=== PATIENT | female | born 1945 | race Caucasian/White ===

== ENCOUNTER 2024-02-08 03:18 | Day surgery (SDC) | payer MEDICARE | END 2024-02-09 23:08 | disposition home or self-care (01) | LOC: WOUND 03:18 | DX: E11.621 Type 2 diabetes mellitus with foot ulcer (principal); L97.414 Non-pressure chronic ulcer of right heel and midfoot with necrosis of bone; L97.522 Non-pressure chronic ulcer of other part of left foot with fat layer exposed | CPT/HCPCS: G0463 ==

== ENCOUNTER 2024-02-15 02:18 | Day surgery (SDC) | payer MEDICARE | END 2024-02-15 23:16 | disposition home or self-care (01) | LOC: WOUND 02:18 | DX: E11.621 Type 2 diabetes mellitus with foot ulcer (principal); L97.515 Non-pressure chronic ulcer of other part of right foot with muscle involvement without evidence of necrosis; L97.422 Non-pressure chronic ulcer of left heel and midfoot with fat layer exposed | CPT/HCPCS: G0463 ==

== ENCOUNTER 2024-02-22 02:52 | Day surgery (SDC) | payer MEDICARE | END 2024-02-22 22:41 | disposition home or self-care (01) | LOC: WOUND 02:52 | DX: E11.621 Type 2 diabetes mellitus with foot ulcer (principal); L97.415 Non-pressure chronic ulcer of right heel and midfoot with muscle involvement without evidence of necrosis; E11.40 Type 2 diabetes mellitus with diabetic neuropathy, unspecified; L97.515 Non-pressure chronic ulcer of other part of right foot with muscle involvement without evidence of necrosis; L97.422 Non-pressure chronic ulcer of left heel and midfoot with fat layer exposed; E11.69 Type 2 diabetes mellitus with other specified complication; M86.9 Osteomyelitis, unspecified; E11.51 Type 2 diabetes mellitus with diabetic peripheral angiopathy without gangrene | CPT/HCPCS: 73630 ==

== ENCOUNTER 2024-02-27 17:02 | Inpatient (IN) | payer MEDICARE ==
[~2024-02-27] VITALS: Ht 167.6 cm; Wt 99.8 kg
[2024-02-27] MEDS ORDERED: Ketorolac Tromethamine 15mg Vial IV ONE (17:40)
[2024-02-27] MEDS ORDERED: Cefepime HCl 1,000 MG in NS 100 ML IV ONE (17:40)
[2024-02-27] MEDS ORDERED: Diphth,Pertuss(Acell),Tet Vac 0.5 ML VIAL IM ONE (17:40)
[2024-02-27 18:11] LABS: Hematocrit 30.4 % (33.0-51.0); Hemoglobin 9.5 g/dL (11.5-16.0); Mean Corpuscular HGB 27.5 pg (26.0-34.0); Mean Corpuscular HGB Conc 31.3 g/dL (31.5-36.5); Mean Corpuscular Volume 88 fL (80-100); Mean Platelet Volume 9.2 fL (9.1-12.4); Platelet Count 336 K/mm3 (150-400); RDW Coefficient Variation 17.5 % (11.7-14.2); Red Blood Cell Count 3.45 M/mm3 (3.80-5.20); White Blood Cell Count 19.03 K/mm3 (4.00-11.30)
[2024-02-27 18:28] LABS: Albumin, Blood 1.5 g/dL (3.4-5.0); Albumin/Globulin Ratio 0.3 (0.8-1.8); Bilirubin, Total 0.8 mg/dL (0.1-1.0); Bun/Creatinine Ratio 28.9 (12.0-20.0); Calcium, Blood 9.3 mg/dL (8.5-10.1); Creatinine, Blood 2.35 mg/dL (0.40-1.00); Globulin, Blood 4.8 g/dL (2.2-4.0); Potassium, Blood 5.1 mmol/L (3.5-5.5); Total Protein, Blood 6.3 g/dL (6.4-8.2)
[2024-02-27 18:32] LABS: BAND PERCENT MAN 44 % (0-8); BASOPHILS PERCENT MAN 0 % (0-2); EOSINOPHILS ABSOLUTE MAN 0.19 K/mm3 (0.00-0.68); EOSINOPHILS PERCENT MAN 1 % (0-6); LYMPHOCYTES ABSOLUTE MAN 0.38 K/mm3 (0.84-5.20); LYMPHOCYTES PERCENT MAN 2 % (21-46); MONOCYTES ABSOLUTE MAN 1.33 K/mm3 (0.16-1.47); MONOCYTES PERCENT MAN 7 % (4-13); NEUTROPHILS ABSOLUTE MAN 17.12 K/mm3 (1.96-9.15); SEG NEUTROPHILS PERCENT MAN 46 % (41-73); TOTAL CELLS COUNTED 100
[2024-02-27] MEDS ORDERED: Ondansetron HCl 2 MG / ML 2ML Vial IV PRN (19:45)
[2024-02-27] MEDS ORDERED: FentaNYL Citrate 50 MCG/ML 2 ML Injection IV PRN (19:50)
[2024-02-27] MEDS ORDERED: Vancomycin HCL 1,250 MG in NS 250 ML IV ONE (19:55)
[2024-02-27] MEDS ORDERED: Albumin (Human) 25gm/100ml 100 ML IV ONE (20:05)
[2024-02-27 20:26] LABS: International Normalized Ratio 1.45; Prothrombin Time Results 15.1 Sec (9.7-11.5)
[2024-02-27] MEDS ORDERED: NS 500 ML IV SCH (21:15)
[2024-02-27] MEDS ORDERED: NS 1,000 ML IV SCH ×2 (21:15→22:00)
[2024-02-27] MEDS ORDERED: METO25ER PO (21:19)
[2024-02-27] MEDS ORDERED: ATOR10 PO (21:20)
[2024-02-27] MEDS ORDERED: Zestril30 MG PO (21:20)
[2024-02-27] MEDS ORDERED: AMLO10 PO (21:20)
[2024-02-27] MEDS ORDERED: METF500 PO (21:21)
[2024-02-27 21:45] VITALS: BP 120/58
[2024-02-27] MEDS ORDERED: MetroNIDAZOLE 500MG/NS 100 ml 100 ML IV ONE (22:15)
--- NOTE | 2024-02-27 22:32 | NUR ---
2135: Patient arrived from ED to room. Vital signs assessed, skin check completed with two RN's, wound care completed to right hip, coccyx, perianal, and bilateral heel sites. Photos taken of wounds while exposed, egg crate placed on bed for pressure relief, purewick system initiated for void collection.
[2024-02-28] VITALS (21 sets, daily range): BP systolic 77–120; BP diastolic 38–74
[2024-02-28] MEDS ORDERED: MetroNIDAZOLE 500MG/NS 100 ml 100 ML IV SCH
--- NOTE | 2024-02-28 05:20 | NUR ---
Patient alert and oriented, VSS, resting comfortably in bed on room air. Telemetry demonstrating sinus tachycardia 100-110's. NS @ 100 mL/hr infusing to left AC, one dose of IV Metronidozole and 1L NS bolus tolerated well.
[2024-02-28 05:46] LABS: Hematocrit 23.8 % (33.0-51.0); Hemoglobin 7.7 g/dL (11.5-16.0); Mean Corpuscular HGB 27.7 pg (26.0-34.0); Mean Corpuscular HGB Conc 32.4 g/dL (31.5-36.5); Mean Corpuscular Volume 86 fL (80-100); Mean Platelet Volume 9.7 fL (9.1-12.4); Platelet Count 246 K/mm3 (150-400); RDW Coefficient Variation 17.2 % (11.7-14.2); RDW Standard Deviation 54.5 fL (35.1-46.3); Red Blood Cell Count 2.78 M/mm3 (3.80-5.20); White Blood Cell Count 16.31 K/mm3 (4.00-11.30)
[2024-02-28 06:06] LABS: Albumin, Blood 1.5 g/dL (3.4-5.0); Albumin/Globulin Ratio 0.4 (0.8-1.8); Bilirubin, Total 0.6 mg/dL (0.1-1.0); Bun/Creatinine Ratio 29.8 (12.0-20.0); Calcium, Blood 8.2 mg/dL (8.5-10.1); Creatinine, Blood 1.91 mg/dL (0.40-1.00); Globulin, Blood 3.5 g/dL (2.2-4.0); Potassium, Blood 4.8 mmol/L (3.5-5.5)
[2024-02-28 06:17] LABS: BAND PERCENT MAN 22 % (0-8); BASOPHILS PERCENT MAN 0 % (0-2); EOSINOPHILS PERCENT MAN 0 % (0-6); LYMPHOCYTES % ATYPICAL MANUAL 1 % (0-0); LYMPHOCYTES ABSOLUTE MAN 0.97 K/mm3 (0.84-5.20); LYMPHOCYTES PERCENT MAN 5 % (21-46); MONOCYTES ABSOLUTE MAN 0.97 K/mm3 (0.16-1.47); MONOCYTES PERCENT MAN 6 % (4-13); MYELOCYTE ABSOLUTE MAN 0.16 K/mm3 (0.00-0.00); MYELOCYTE PERCENT MAN 1 % (0-0); NEUTROPHILS ABSOLUTE MAN 14.18 K/mm3 (1.96-9.15); SEG NEUTROPHILS PERCENT MAN 65 % (41-73); TOTAL CELLS COUNTED 100
[2024-02-28] MEDS ORDERED: Insulin Human Lispro 100 Units/ML 3ML Syringe SC SCH (07:30)
[2024-02-28] MEDS ORDERED: Metoprolol Succinate 25 MG TABCR PO SCH (09:00)
[2024-02-28] MEDS ORDERED: Lactobacil 2-S.Thermo-Bifido 1 1 Cap PO SCH (10:30)
[2024-02-28] MEDS ORDERED: Bupivacaine 0.5% Inj 10 ML Vial ONE (10:38)
[2024-02-28] MEDS ORDERED: NS 1,000 ML IV SCH (10:40)
[2024-02-28] MEDS ORDERED: FentaNYL Citrate 50 MCG/ML 2 ML Injection ONE ×2 (10:49→12:52)
[2024-02-28] MEDS ORDERED: propofoL 20 ML IV ONE ×2 (10:49→11:37)
[2024-02-28] MEDS ORDERED: Rocuronium Bromide 10 MG/ML 5ML Injection IV ONE (10:49)
[2024-02-28 10:57] LABS: Source, Urine Clean Catch
[2024-02-28 11:05] LABS: Appearance, Urine Hazy (Clear); Bilirubin, Urine Neg (Neg); Blood, Urine 4+ (Neg); Color, Urine Yellow (P-Yellow); Glucose Qualitative, Urine Neg (Neg); Ketones, Urine Neg (Neg); Leukocyte Esterase, Urine Neg (Neg); Nitrite, Urine Neg (Neg); Protein, Urine 1+ (Neg); Specific Gravity, Urine 1.015 (1.003-1.022); Urobilinogen, Urine NORM (Normal)
[2024-02-28 11:13] LABS: Bacteria Few /hpf; Red Blood Cells, Urine 25-50 /hpf (0-2); Squamous Epithelial Cells Few /hpf (Few); Triple Phosphate Crystals Few /hpf; White Blood Cells, Urine 0-2 /hpf (0-5)
--- NOTE | 2024-02-28 11:40 | NUR ---
History, Chart, Medications and Allergies reviewed before start of procedure. Pre-Op teaching done. Pt verbalizes understanding. Patient confirms NPO status and agrees with scheduled surgery.
[2024-02-28] MEDS ORDERED: Phenylephrine HCl 100 MCG/ML-NS 10MLSYR (1MG/10ML) ONE (11:57)
[2024-02-28] MEDS ORDERED: Sodium Hypochlorite 0.125% 473 ML BTL TOP ONE (12:20)
--- NOTE | 2024-02-28 12:30 | NUR ---
02/28/24 1230 Chelita Ramirez 3RD IV STARTED IN L HAND, 20G, FLUSHED WITH 10MLS OF SALINE. 2 PRIOR ATTEMPTS, (#1 IN R FOREARM, #2 IN L HAND)
[2024-02-28] MEDS ORDERED: FentaNYL Citrate 50 MCG/ML 5 ML Injection ONE (12:52)
[2024-02-28] MEDS ORDERED: Sugammadex Sodium 200 MG/2ML SDV (100 MG/ML) ONE (13:12)
--- NOTE | 2024-02-28 15:29 | NUR ---
CALLED DR. CARDENAS AT 1525 TO INQUIRE ABOUT NPO STATUS AND PAIN MEDICATION FOR PATIENT NOW THAT SHE IS POST OP. NO ANSWER LMOM.
[2024-02-28] MEDS ORDERED: OxyCODONE 5 mg/Acetamin 325 mg TABLET PO PRN (16:15)
--- NOTE | 2024-02-28 16:31 | NUR ---
RECORDS SHOWED THAT PATIENT HAD A POLST, BUT WAS NOT IN THE SYSTEM. CALLED [facility] AND WAS FAXED OVER. POLST STATES DNR AND FULL TREATMENT. PT HAS JUST RETURNED FROM A PROCEDURE AND IS TOO LETHARGIC TO VERIFY CODE STATUS. LEFT COPY OF POLST IN THE CHART AND UPDATED BEDSIDE RN AND PROVIDER. PC WILL REMAIN AVALILABLE.
--- NOTE | 2024-02-28 17:09 | NUR ---
CALLED DR. DIMAS REGARDING PATIENT'S BLOOD PRESSURE; TELEPHONE ORDER FOR 500ML LR BOLUS AND TO CHECK H&H STAT AND AGAIN AT 2100. ORDERS PLACED. PATIENT IS ALERT.
[2024-02-28] MEDS ORDERED: Lactated Ringer's 500 ML IV ONE (17:10)
[2024-02-28 17:44] LABS: Hematocrit 25.7 % (33.0-51.0); Hemoglobin 7.8 g/dL (11.5-16.0)
[2024-02-28] MEDS ORDERED: Cefepime HCl 1,000 MG in NS 100 ML IV SCH (18:00)
--- NOTE | 2024-02-28 19:08 | NUR ---
SHIFT SUMMARY: PT UNDERWENT SURGERY TODAY TO CLEAN OUT ALL OF HER INFECTIOUS WOUNDS. SEE DR. HASSAN'S NOTE FOR FURTHER DETAIL. PATIENT C/O POST OP PAIN; MEDS NEEDED. DRESSING SATURATED WITH SEROUS FLUID; CHANGED. WOUNDS SHOWN TO NOC RN AND NOC ATTENDING UROLOGIST. PATIENT IN BED, CALL LIGHT WITHIN REACH, NO SIGNS OR SYMPTOMS OF DISTRESS, PLAN OF CARE ONGOING.
[2024-02-28 19:36] LABS: Vancomycin, Random 5.5 ug/mL
[2024-02-28] MEDS ORDERED: Vancomycin HCL 1,250 MG in NS 250 ML IV ONE (20:05)
[2024-02-28] MEDS ORDERED: Vancomycin HCL 1,500 MG in NS 250 ML IV ONE (20:05)
[2024-02-28] MEDS ORDERED: Lactated Ringer's 1,000 ML IV SCH (20:35)
[2024-02-28] MEDS ORDERED: Lactated Ringer's 1,000 ML IV ONE (20:35)
[2024-02-28] MEDS ORDERED: Midodrine 5 MG Tab PO ONE (20:40)
[2024-02-28 20:52] LABS: Hematocrit 23.1 % (33.0-51.0)
[2024-02-28] MEDS ORDERED: Acetaminophen 325 MG TABLET PO PRN (21:50)
[2024-02-28 22:04] LABS: IMMATURE RETIC FRACTION 31.2 % (2.3-16.0); RETIC HGB EQUIVALENT 26.6 pg (28.20-36.60); RETICULOCYTE ABSOLUTE 0.0482 M/mm3 (0.0200-0.1100); RETICULOCYTE COUNT PERCENT 1.86 % (0.50-2.50)
[2024-02-28] MEDS ORDERED: NS 500 ML IV SCH (22:20)
[2024-02-28 22:22] LABS: Percent Saturation 12.3 % (15.0-50.0)
[2024-02-29] VITALS (10 sets, daily range): BP systolic 89–112; BP diastolic 38–60
--- NOTE | 2024-02-29 06:28 | NUR ---
END OF SHIFT SUMMARY PT A&OX4, FORGETFUL AND [place]. NIECE IN LAST NIGHT TO VISIT WITH PT AND BROUGHT HEARING AID. LOW BP, PT ASYMPTOMATIC. MD NOTIFIED AND ORDERS FOR BOLUS, MIDODRINE AND CONT IVF ORDERED. LATER HEMOGLOBIN DOWN TO 7.0, ORDERS RECD FOR 1U OF PRBC. TRANSFUSED WITHOUT INCIDENT. BP IMPROVED, SEE CHARTING. ABD PADS CHANGED THIS AM DUE TO SS DRAINAGE, PACKING AND HUMBERTO REMAINS IN PLACE. NO OTHER EVENTS OVERNIGHT.
[2024-02-29 07:16] LABS: BASOPHILS ABSOLUTE AUTO 0.03 K/mm3 (0.00-0.23); BASOPHILS PERCENT AUTO 0 % (0-2); EOSINOPHILS PERCENT AUTO 1 % (0-6); Hematocrit 24.4 % (33.0-51.0); Hemoglobin 7.8 g/dL (11.5-16.0); IMMATURE GRAN ABSOLUTE AUTO 0.41 K/mm3 (0.00-0.10); IMMATURE GRAN PERCENT AUTO 3 % (0-1); LYMPHOCYTES ABSOLUTE AUTO 1.21 K/mm3 (0.84-5.20); LYMPHOCYTES PERCENT AUTO 8 % (21-46); MONOCYTES ABSOLUTE AUTO 0.99 K/mm3 (0.16-1.47); MONOCYTES PERCENT AUTO 7 % (4-13); Mean Corpuscular HGB 28.6 pg (26.0-34.0); Mean Corpuscular Volume 89 fL (80-100); Mean Platelet Volume 9.2 fL (9.1-12.4); NEUTROPHILS ABSOLUTE AUTO 11.97 K/mm3 (1.96-9.15); NEUTROPHILS PERCENT AUTO 81 % (41-73); Platelet Count 249 K/mm3 (150-400); RDW Coefficient Variation 16.7 % (11.7-14.2); RDW Standard Deviation 54.9 fL (35.1-46.3); Red Blood Cell Count 2.73 M/mm3 (3.80-5.20); White Blood Cell Count 14.71 K/mm3 (4.00-11.30)
[2024-02-29 07:33] LABS: Albumin, Blood 1.2 g/dL (3.4-5.0); Albumin/Globulin Ratio 0.4 (0.8-1.8); Bilirubin, Total 0.6 mg/dL (0.1-1.0); Bun/Creatinine Ratio 28.8 (12.0-20.0); Calcium, Blood 7.6 mg/dL (8.5-10.1); Creatinine, Blood 1.46 mg/dL (0.40-1.00); Globulin, Blood 2.9 g/dL (2.2-4.0); Potassium, Blood 4.5 mmol/L (3.5-5.5); Total Protein, Blood 4.1 g/dL (6.4-8.2)
[2024-02-29] MEDS ORDERED: Cefepime HCl 1,000 MG in NS 100 ML IV SCH (09:00)
[2024-02-29 15:32] LABS: Hematocrit 26.4 % (33.0-51.0); Hemoglobin 8.4 g/dL (11.5-16.0)
--- NOTE | 2024-02-29 17:50 | NUR ---
SHIFT SUMMARY: PT IS A&OX4/BEDBOUND; MAKES NEEDS KNOWN. SHE IS 1 DAY POST OP. SHE IS DOING WELL; C/O MINIMAL PAIN; STATES FEELS SORE. DRESSINGS BEING CHANGED WHEN BECOME SATURATED X2 TIMES TODAY. SHE IS EATING, DRINKING, WELLER IN DRAINING, AND HAD A BOWEL MOVEMENT. VITALS STABLE; HEMAGLOBIN IS 8.4. SHE CONTINUES TO GET FLUIDS AND IV ANTIBIOTICS. FAMILY MET WITH DR. CARDENAS AND NURSE RETAIL LOSS PREVENTION OFFICER REMI TODAY ABOUT PATIENT'S CARE/CONDITION. SHE IS IN BED, CALL LIGHT WITHIN REACH, FAMILY AT BEDSIDE, NO SIGNS OR SYMPTOMS OF DISTRESS, PLAN OF CARE ONGOING. (CHARTING COMPLETED DURING DOWNTIME TODAY WAS ALSO COMPLETED ON DOWNTIME PAPER CHARTS)
--- NOTE | 2024-02-29 18:15 | NUR ---
DR. HASSAN CALLED ME FOR AN UPDATE ON THE PATIENT; UPDATE GIVEN. HE PLANS ON COMING BY TOMORROW AND CHANGING THE PATIENT'S WOUND DRESSINGS. HE IS REQUESTING THAT ONCOMING RN BE NOTIFIED AND THAT THE MESSAGE BE PAST ALONG TO TOMORROW'S DAY SHIFT NURSE WELL; BEDSIDE RNS WILL NEED TO START DOING DRESSSING CHANGES.
[2024-02-29] MEDS ORDERED: Vancomycin HCL 1,000 MG in NS 250 ML IV ONE (19:50)
[2024-02-29] MEDS ORDERED: NS 250 ML IV ONE (20:58)
[2024-03-01 03:44] VITALS: BP 115/52
[2024-03-01] MEDS ORDERED: NS 250 ML IV PRN (04:05)
[2024-03-01 05:48] LABS: BASOPHILS ABSOLUTE AUTO 0.03 K/mm3 (0.00-0.23); BASOPHILS PERCENT AUTO 0 % (0-2); EOSINOPHILS ABSOLUTE AUTO 0.15 K/mm3 (0.00-0.68); EOSINOPHILS PERCENT AUTO 1 % (0-6); Hematocrit 25.7 % (33.0-51.0); Hemoglobin 8.2 g/dL (11.5-16.0); IMMATURE GRAN ABSOLUTE AUTO 0.43 K/mm3 (0.00-0.10); IMMATURE GRAN PERCENT AUTO 3 % (0-1); LYMPHOCYTES ABSOLUTE AUTO 1.01 K/mm3 (0.84-5.20); LYMPHOCYTES PERCENT AUTO 7 % (21-46); MONOCYTES ABSOLUTE AUTO 0.86 K/mm3 (0.16-1.47); MONOCYTES PERCENT AUTO 6 % (4-13); Mean Corpuscular HGB 28.6 pg (26.0-34.0); Mean Corpuscular HGB Conc 31.9 g/dL (31.5-36.5); Mean Corpuscular Volume 90 fL (80-100); Mean Platelet Volume 8.9 fL (9.1-12.4); NEUTROPHILS ABSOLUTE AUTO 12.52 K/mm3 (1.96-9.15); NEUTROPHILS PERCENT AUTO 84 % (41-73); Platelet Count 241 K/mm3 (150-400); RDW Coefficient Variation 17.2 % (11.7-14.2); RDW Standard Deviation 55.8 fL (35.1-46.3); Red Blood Cell Count 2.87 M/mm3 (3.80-5.20)
[2024-03-01 06:14] LABS: Albumin, Blood 1.2 g/dL (3.4-5.0); Albumin/Globulin Ratio 0.4 (0.8-1.8); Bilirubin, Total 0.4 mg/dL (0.1-1.0); Bun/Creatinine Ratio 26.8 (12.0-20.0); Calcium, Blood 7.6 mg/dL (8.5-10.1); Creatinine, Blood 1.12 mg/dL (0.40-1.00); Potassium, Blood 4.3 mmol/L (3.5-5.5); Total Protein, Blood 4.2 g/dL (6.4-8.2)
--- NOTE | 2024-03-01 06:45 | NUR ---
END OF SHIFT SUMMARY PT A&OX4, FORGETFUL AT TIMES. [place], R HEARING AID IN ROOM. PT DENIES PAIN. DRESSING TO SACRUM CHANGED X1 FOR SATURATION, PACKING AND HUMBERTO DRAINS REMAIN INTACT. MEPILEX TO BUTTOCK/COCCYX CHANGED THIS AM. POSITIVE BLOOD CULTURES CALLED TO , CONTINUES ON IVF AND ABX. NO ACUTE EVENTS OVERNIGHT.
[2024-03-01 07:14] VITALS: BP 110/59
--- NOTE | 2024-03-01 09:00 | NUR ---
Pt laying in bed awake a/ox4, curyung, pleasant and cooperative with care, follows commands, denies pain, lungs are clear dim in bases resp even and unlabored, no cough noted, on r/a, hrr, tele in place running sr to st with bbb and pac's, 2+ edema noted to b/l le ppp faint, cap refill <3 sec vs stable, afebrile, iv sites are clear and patent, btx4, abd flat soft nontender, voids via norwood cath as she has large sacral wound, skin has dressing to sacral area, Dr. Ramirez will change today, maew, legs are weak, marilyn, call light in reach.
[2024-03-01] MEDS ORDERED: OxyCODONE HCL 5 MG TAB PO PRN (11:40)
--- NOTE | 2024-03-01 15:00 | NUR ---
1230 dr victoria in to see patient and performed dressing change to coccyx area. wound bed with benedict/yellow drainage. wound space and tunnels packed with kerlix which was moistened with daikens solution. 4 rolls of kerlix tied end to end together. covered with abd's and tape to hold in place. mepilex coccyx dressing applied
[2024-03-01 15:18] VITALS: BP 102/52
--- NOTE | 2024-03-01 18:14 | NUR ---
Dr. Ramirez in to change dressing on pt sacral area, he packed it and gave orders on wound care every other day, pt has been turned throughout the day, and started her on oxycodone for pain. no further changes this shift, call light in reach.
[2024-03-01 20:02] LABS: Vancomycin, Random 15.5 ug/mL
[2024-03-01 20:08] VITALS: BP 107/56
[2024-03-01] MEDS ORDERED: Vancomycin HCL 1,250 MG in NS 250 ML IV SCH (21:00)
--- NOTE | 2024-03-02 04:53 | NUR ---
NOC SHIFT SUMMARY PT APPEARED TO SLEEP WELL WITH NO COMPLAINTS. REPOSITIONED EVERY 2 HOURS.
[2024-03-02 05:23] VITALS: BP 104/44
[2024-03-02 06:09] LABS: BASOPHILS ABSOLUTE AUTO 0.03 K/mm3 (0.00-0.23); BASOPHILS PERCENT AUTO 0 % (0-2); EOSINOPHILS PERCENT AUTO 1 % (0-6); Hematocrit 25.1 % (33.0-51.0); Hemoglobin 7.9 g/dL (11.5-16.0); IMMATURE GRAN ABSOLUTE AUTO 0.42 K/mm3 (0.00-0.10); IMMATURE GRAN PERCENT AUTO 3 % (0-1); LYMPHOCYTES ABSOLUTE AUTO 1.06 K/mm3 (0.84-5.20); LYMPHOCYTES PERCENT AUTO 8 % (21-46); MONOCYTES ABSOLUTE AUTO 0.92 K/mm3 (0.16-1.47); MONOCYTES PERCENT AUTO 7 % (4-13); Mean Corpuscular HGB 28.4 pg (26.0-34.0); Mean Corpuscular HGB Conc 31.5 g/dL (31.5-36.5); Mean Corpuscular Volume 90 fL (80-100); Mean Platelet Volume 9.4 fL (9.1-12.4); NEUTROPHILS ABSOLUTE AUTO 11.34 K/mm3 (1.96-9.15); NEUTROPHILS PERCENT AUTO 82 % (41-73); Platelet Count 250 K/mm3 (150-400); RDW Coefficient Variation 17.3 % (11.7-14.2); RDW Standard Deviation 57.4 fL (35.1-46.3); Red Blood Cell Count 2.78 M/mm3 (3.80-5.20); White Blood Cell Count 13.87 K/mm3 (4.00-11.30)
[2024-03-02 06:32] LABS: Albumin/Globulin Ratio 0.4 (0.8-1.8); Bilirubin, Total 0.4 mg/dL (0.1-1.0); Bun/Creatinine Ratio 21.8 (12.0-20.0); Calcium, Blood 7.3 mg/dL (8.5-10.1); Creatinine, Blood 1.01 mg/dL (0.40-1.00); Globulin, Blood 2.8 g/dL (2.2-4.0); Potassium, Blood 4.2 mmol/L (3.5-5.5); Total Protein, Blood 3.8 g/dL (6.4-8.2)
[2024-03-02 07:29] VITALS: BP 90/45
--- NOTE | 2024-03-02 09:04 | NUR ---
NOTE: SPOKE WITH PHARMACIST, NABOR, AND SHE CONFIRMED BOTH CEFEPIME AND METRONDANIZOLE ARE OKAY TO RUN WITH LR.
[2024-03-02 15:48] VITALS: BP 113/67
--- NOTE | 2024-03-02 16:47 | NUR ---
SHIFT SUMMARY PT AOX4, 2 ASSIST TO THE CHAIR IF HEEL PAIN WILL ALLOW. BIG [place]. DRESSING TO BACK REINFORCED THIS SHIFT. HEEL DRESSINGS ALSO CHANGED THIS SHIFT. PT HAS NOT C/O CP,P,N,V,D. REPOSITIONED THROUGHOUT THE SHIFT. SHE WILL CALL AND MAKE HER NEEDS KNOWN. CALL LIGHT WITHIN REACH, BED LOCKED AND IN THE LOWEST POSITION. WILL REPORT TO ONCOMING NURSE.
[2024-03-02 19:20] VITALS: BP 94/54
[2024-03-03 02:37] VITALS: BP 96/55
--- NOTE | 2024-03-03 04:16 | NUR ---
SHIFT SUMMARY. PATIENT IS A&OX4. PATIENT IS PLEASANT AND COOPERATIVE WITH CARE. PATIENT SLEPT OFF AND ON T/O NIGHT WITH RESPIRATIONS EQUAL AND UNLABORED. PATIENTS IV BLEEDING. NEW IV PLACED-CONCER FOR INFILTRATION. PATIENT NOT WANTING ANOTHER IV PLACED AT THIS TIME-PATIENT REPORTS SHE WILL HAVE THEM TAKE A LOOK DURING THE DAY. IV SUSPENDED AT THIS TIME. PATIENT IS READING AND WATCHING TV INTERMITTANTLY BETWEEN RESTING. BED IS LOCKED IN THE LOWEST POSITON [facility] CALL LIGHT IN REACH. CARE IS ONGOING.
[2024-03-03 05:46] LABS: BASOPHILS ABSOLUTE AUTO 0.02 K/mm3 (0.00-0.23); BASOPHILS PERCENT AUTO 0 % (0-2); EOSINOPHILS PERCENT AUTO 1 % (0-6); Hematocrit 26.5 % (33.0-51.0); Hemoglobin 8.3 g/dL (11.5-16.0); IMMATURE GRAN ABSOLUTE AUTO 0.54 K/mm3 (0.00-0.10); IMMATURE GRAN PERCENT AUTO 4 % (0-1); LYMPHOCYTES ABSOLUTE AUTO 1.13 K/mm3 (0.84-5.20); LYMPHOCYTES PERCENT AUTO 9 % (21-46); MONOCYTES ABSOLUTE AUTO 1.01 K/mm3 (0.16-1.47); MONOCYTES PERCENT AUTO 8 % (4-13); Mean Corpuscular HGB 28.2 pg (26.0-34.0); Mean Corpuscular HGB Conc 31.3 g/dL (31.5-36.5); Mean Corpuscular Volume 90 fL (80-100); Mean Platelet Volume 9.3 fL (9.1-12.4); NEUTROPHILS ABSOLUTE AUTO 9.95 K/mm3 (1.96-9.15); NEUTROPHILS PERCENT AUTO 78 % (41-73); Platelet Count 275 K/mm3 (150-400); RDW Coefficient Variation 17.4 % (11.7-14.2); RDW Standard Deviation 56.6 fL (35.1-46.3); Red Blood Cell Count 2.94 M/mm3 (3.80-5.20); White Blood Cell Count 12.75 K/mm3 (4.00-11.30)
[2024-03-03 06:07] LABS: Bun/Creatinine Ratio 15.9 (12.0-20.0); Calcium, Blood 7.7 mg/dL (8.5-10.1); Creatinine, Blood 0.94 mg/dL (0.40-1.00); Potassium, Blood 4.2 mmol/L (3.5-5.5)
[2024-03-03 07:18] VITALS: BP 101/55
[2024-03-03] MEDS ORDERED: CefTRIAXone Sodium 2,000 MG in NS 100 ML IV SCH (13:00)
[2024-03-03 15:24] VITALS: BP 91/77
[2024-03-03] MEDS ORDERED: Enoxaparin 40 MG/0.4 ML SYR SC SCH (16:00)
--- NOTE | 2024-03-03 18:28 | NUR ---
SHIFT SUMMARY PT HAD WOUND CARE COMPLETED TODAY BY RNS. NEW PHOTOS TAKEN AND IN CHART. FAMILY MET WITH DC CONDITIONER TENDER AND PLAN TO SEND REFERAL TO [facility] IN [place] FOR THERAPY. PT WORKED WITH OT TODAY. REQUEST FOR PODIATRY CONSULT TO ASSESS WOUNDS ON FEET AND WEIGHT BEARING STATUS. DR. GOMEZ IN THIS AFTERNOON TO SEE THE PATIENT. RECOMMENDING A POST OP SHOE FOR THE L FOOT AND NON-WEIGHT BEARING FOR THE R FOOT. ONLY FOR TRANSFERING NO AMBULATION AT THIS TIME. ORDERS PLACED FOR THERAPY TO FOLLOW. POST OP SHOE REQUESTED FOR L FOOT. NO OTHER ACUTE CHANGES IN ASSESSMENT AT THIS TIME. VS REVIEWED. CALL LIGHT IN REACH. DENIES OTHER NEEDS AT THIS TIME.
[2024-03-03 19:50] VITALS: BP 92/45
[2024-03-04 02:16] VITALS: BP 104/58
--- NOTE | 2024-03-04 04:52 | NUR ---
SHIFT SUMMARY ADMITTED FOR DECUBITUS ULCERS. DNR CODE. PLAN IS FOR PLACEMENT VS [facility]RA TRANSFER. WELLER IN PLACE. ABD PADS ON DRESSINGS CHANGED THIS SHIFT. SHE IS A&OX4, QUITE PLEASANT AND COOPERATIVE. I&D PERFORMED ON ULCERS 02/28/24. LR INFUSING ORDERED. SHE IS NON WEIGHT BEARING ON RIGHT HEEL, AND WITH HER LEFT FOOT SHE WILL UTILIZE A POST OP SHOE (ALSO DUE TO ULCERS). SHE IS ON RA. CARDIAC DIET.
[2024-03-04 05:48] LABS: BASOPHILS ABSOLUTE AUTO 0.03 K/mm3 (0.00-0.23); BASOPHILS PERCENT AUTO 0 % (0-2); EOSINOPHILS ABSOLUTE AUTO 0.14 K/mm3 (0.00-0.68); EOSINOPHILS PERCENT AUTO 1 % (0-6); Hematocrit 25.9 % (33.0-51.0); Hemoglobin 8.2 g/dL (11.5-16.0); IMMATURE GRAN ABSOLUTE AUTO 0.45 K/mm3 (0.00-0.10); IMMATURE GRAN PERCENT AUTO 4 % (0-1); LYMPHOCYTES ABSOLUTE AUTO 0.98 K/mm3 (0.84-5.20); LYMPHOCYTES PERCENT AUTO 8 % (21-46); MONOCYTES ABSOLUTE AUTO 0.82 K/mm3 (0.16-1.47); MONOCYTES PERCENT AUTO 7 % (4-13); Mean Corpuscular HGB 28.8 pg (26.0-34.0); Mean Corpuscular HGB Conc 31.7 g/dL (31.5-36.5); Mean Corpuscular Volume 91 fL (80-100); Mean Platelet Volume 9.4 fL (9.1-12.4); NEUTROPHILS ABSOLUTE AUTO 9.83 K/mm3 (1.96-9.15); NEUTROPHILS PERCENT AUTO 80 % (41-73); Platelet Count 285 K/mm3 (150-400); RDW Standard Deviation 58.3 fL (35.1-46.3); Red Blood Cell Count 2.85 M/mm3 (3.80-5.20); White Blood Cell Count 12.25 K/mm3 (4.00-11.30)
[2024-03-04 06:45] LABS: Albumin/Globulin Ratio 0.3 (0.8-1.8); Bilirubin, Total 0.3 mg/dL (0.1-1.0); Bun/Creatinine Ratio 14.2 (12.0-20.0); Calcium, Blood 7.5 mg/dL (8.5-10.1); Creatinine, Blood 0.92 mg/dL (0.40-1.00); Globulin, Blood 3.3 g/dL (2.2-4.0); Potassium, Blood 3.9 mmol/L (3.5-5.5); Total Protein, Blood 4.3 g/dL (6.4-8.2)
[2024-03-04 07:19] VITALS: BP 96/56
[2024-03-04 15:02] VITALS: BP 104/60
--- NOTE | 2024-03-04 18:32 | NUR ---
SHIFT SUMMARY PT ABD PADS CHANGED ON THE OUTSIDE OF HER WOUND TODAY DUE TO DRAINAGE. DRESSINGS TO BILATERAL FEET CHANGED WELL TODAY. PT HAD PELVIC/UTERINE ULTRASOUND TODAY. ATTEMPT TO NOTIFY MD OF RESULTS, BUT UNABLE TO GET AHOLD OF THEM AND NO ABILITY TO LEAVE MESSAGE. PT WORKING WITH PHYSICAL THERAPY TODAY & OCCUPATIONAL THERAPY. OTHERWISE, NO CHANGES IN ASSESSMENT AT THIS TIME. VS REVIEWED. CALL LIGHT IN REACH. DENIES OTHER NEEDS AT THIS TIME.
[2024-03-04 19:09] VITALS: BP 92/43
[2024-03-05 02:39] VITALS: BP 84/44
--- NOTE | 2024-03-05 03:42 | NUR ---
PATIENTS ABD PADS CHANGED AND AREA CLEANED AROUND ROUND D/T SATURATION.
[2024-03-05 03:47] VITALS: BP 99/59
--- NOTE | 2024-03-05 04:42 | NUR ---
SHIFT SUMMARY. PATIENT IS A&OX2. CALLS APPROPRIATELY AND IS ABLE TO MAKE HER NEEDS KNWON. PATIENT IS PLEASANT AND COOPERATIVE WITH CARE. PATIENT ADMITTED WITH DECUBITIS WOUNDS AND HEEL ULCERS. WOUND DRESSING TO WOUNDS ON BACK TO BE CHANGED ON 03/05/24. HEEL WOUND DRESSINGS CHANGED ON 03/04/24 DURING DAYSHIFT. PATIENTS HEEL DRESSINGS C/D/I THIS SHIFT. PATIENT REPORTS THAT HER FAMILY IS GOING TO BRING HER IN DINNER ON 03/05/24 AND SHE DOES NOT NEED A TRAY. PATIENT WORKED WITH PHYSICAL THERAPY AND OCCUPATIONAL THERAPY TODAY. PATIENT SLEEPY THIS EVENING. PATIENT IS ABLE TO ASSIST IN ROLLING IN BED. PATIENTS BLOOD PRESSURE WAS SOFT THIS MORNING AT 99/59-PATIENT REPORTS SHE FEELS JUST FINE AND NOTHING SEEMS DIFFERENT WITH HER BLOOD PRESSURE. BED IS LOCKED IN THE LOWEST POSITION WITH CALL LIGHT IN REACH. CARE IS ONGOING.
--- NOTE | 2024-03-05 05:05 | NUR ---
HOSPITALIST CONTACTED. HOSPITALIST CONTACTED AND NOTIFIED OF PATIENTS SOFT BLOOD PRESSURE OF 99/54. NO CHANGES AT THIS TIME. TO CONTINUE TO MONITOR PATIENT.
[2024-03-05 05:46] LABS: BASOPHILS ABSOLUTE AUTO 0.03 K/mm3 (0.00-0.23); BASOPHILS PERCENT AUTO 0 % (0-2); EOSINOPHILS ABSOLUTE AUTO 0.12 K/mm3 (0.00-0.68); EOSINOPHILS PERCENT AUTO 1 % (0-6); Hematocrit 24.7 % (33.0-51.0); Hemoglobin 7.7 g/dL (11.5-16.0); IMMATURE GRAN ABSOLUTE AUTO 0.34 K/mm3 (0.00-0.10); IMMATURE GRAN PERCENT AUTO 3 % (0-1); LYMPHOCYTES ABSOLUTE AUTO 1.09 K/mm3 (0.84-5.20); LYMPHOCYTES PERCENT AUTO 10 % (21-46); MONOCYTES ABSOLUTE AUTO 0.82 K/mm3 (0.16-1.47); MONOCYTES PERCENT AUTO 7 % (4-13); Mean Corpuscular HGB 28.5 pg (26.0-34.0); Mean Corpuscular HGB Conc 31.2 g/dL (31.5-36.5); Mean Corpuscular Volume 92 fL (80-100); Mean Platelet Volume 9.2 fL (9.1-12.4); NEUTROPHILS ABSOLUTE AUTO 8.79 K/mm3 (1.96-9.15); NEUTROPHILS PERCENT AUTO 79 % (41-73); Platelet Count 276 K/mm3 (150-400); RDW Coefficient Variation 18.1 % (11.7-14.2); RDW Standard Deviation 58.3 fL (35.1-46.3); White Blood Cell Count 11.19 K/mm3 (4.00-11.30)
[2024-03-05 07:00] LABS: Albumin/Globulin Ratio 0.3 (0.8-1.8); Bilirubin, Total 0.3 mg/dL (0.1-1.0); Bun/Creatinine Ratio 12.5 (12.0-20.0); Calcium, Blood 7.7 mg/dL (8.5-10.1); Creatinine, Blood 0.88 mg/dL (0.40-1.00); Globulin, Blood 3.1 g/dL (2.2-4.0); Phosphorus, Blood 1.9 mg/dL (2.5-4.9); Potassium, Blood 3.8 mmol/L (3.5-5.5); Total Protein, Blood 4.1 g/dL (6.4-8.2)
[2024-03-05 07:48] VITALS: BP 105/64
[2024-03-05 15:28] VITALS: BP 97/56
--- NOTE | 2024-03-05 17:21 | NUR ---
NO ACUTE CHANGES, WAINWRIGHT, FRIENDS VISITED TODAY, VIBRA DENIED PATIENTS INSURANCE, DRESSING TO LOWER BACK DONE WITH DANIK'S SOLUTION ON KERLEX PACKED IN WOUNDS, TWO DRAINS IN PLACE, MEPILEX TO COCCYX, NEW HEEL DRESSINGS, PATIENT TOLERATED WITH EASE, PATIENT IS UNABLE TO FEEL THE WOUND AND PACKING. WELLER TO GRAVITY, WORKED WITH PT/OT, VERY WAINWRIGHT, OTHER OPTIONS FOR SNF EXPLORED BY CASE MANAGEMENT. LEFT WRIST IV INFILTRATED, NEW IV TO LEFT AC, CALL LIGHT WITH IN REACH, CLEARLY MAKES NEEDS KNOWN, WILL RELAY TO PM SAI
[2024-03-05] MEDS ORDERED: Arginine/Glutamine/Calcium Hmb 1 Packet PO SCH (21:00)
[2024-03-05 21:03] VITALS: BP 98/57
--- NOTE | 2024-03-05 21:19 | NUR ---
PATIENTS WOUND TO LOWER BACK DRAINING HEAVILY EARLY THIS SHIFT-ABD PADS AND DISPOSABLE FACUNDO PADS CHANGED FOR SATURATION. PATIENT TOLERATED WELL. SKIN AROUND AREA WHERE TAPE IS APPLIED TO IS PINK/IRRITATED. MINIMAL TAPE USED TO KEEP BANDAGE IN PLACE.
[2024-03-06 02:59] VITALS: BP 108/58
--- NOTE | 2024-03-06 04:15 | NUR ---
SHIFT SUMMARY. PATIENT IS A&OX4. PATIENT HAS HAD NO CHANGES THIS SHIFT. PATIENT IS PLEASANT AND COOPERATIVE WITH CARE. PATIENT C/O PAIN X1 TONIGHT-MEDICATED WITH OXYCODONE PER ORDERS-PATIENT REPORTS RELIEF FROM PAIN. PATIENT HAD WOUND DRESSINGS CHANGED DURING THE DAYSHIFT ON 03/05/24. PATIENTS WOUNDS ARE DRAINING-SEE PREVIOUS NOTE. WELLER IS PATENT AND DRAINING TO GRAVITY-CATHETER CARE COMPLETED. BED IS LOCKED IN THE LOWEST POSITION WITH CALL LIGHT IN REACH. NEEDS ASSESSED AND ADDRESSED T/O NIGHT. CARE IS ONGOING.
[2024-03-06 05:18] LABS: BASOPHILS ABSOLUTE AUTO 0.05 K/mm3 (0.00-0.23); BASOPHILS PERCENT AUTO 1 % (0-2); EOSINOPHILS ABSOLUTE AUTO 0.14 K/mm3 (0.00-0.68); EOSINOPHILS PERCENT AUTO 1 % (0-6); Hematocrit 24.9 % (33.0-51.0); Hemoglobin 8.2 g/dL (11.5-16.0); IMMATURE GRAN ABSOLUTE AUTO 0.39 K/mm3 (0.00-0.10); IMMATURE GRAN PERCENT AUTO 4 % (0-1); LYMPHOCYTES ABSOLUTE AUTO 1.26 K/mm3 (0.84-5.20); LYMPHOCYTES PERCENT AUTO 11 % (21-46); MONOCYTES ABSOLUTE AUTO 0.78 K/mm3 (0.16-1.47); MONOCYTES PERCENT AUTO 7 % (4-13); Mean Corpuscular HGB 29.3 pg (26.0-34.0); Mean Corpuscular HGB Conc 32.9 g/dL (31.5-36.5); Mean Corpuscular Volume 89 fL (80-100); Mean Platelet Volume 9.3 fL (9.1-12.4); NEUTROPHILS ABSOLUTE AUTO 8.48 K/mm3 (1.96-9.15); NEUTROPHILS PERCENT AUTO 76 % (41-73); Platelet Count 238 K/mm3 (150-400); RDW Coefficient Variation 18.6 % (11.7-14.2); RDW Standard Deviation 57.1 fL (35.1-46.3)
[2024-03-06 05:44] LABS: Albumin/Globulin Ratio 0.3 (0.8-1.8); Bilirubin, Total 0.2 mg/dL (0.1-1.0); Bun/Creatinine Ratio 15.1 (12.0-20.0); Calcium, Blood 7.4 mg/dL (8.5-10.1); Creatinine, Blood 0.93 mg/dL (0.40-1.00); Globulin, Blood 3.1 g/dL (2.2-4.0); Potassium, Blood 3.9 mmol/L (3.5-5.5); Total Protein, Blood 4.1 g/dL (6.4-8.2)
[2024-03-06 07:45] VITALS: BP 95/52
[2024-03-06] MEDS ORDERED: Sodium Hypochlorite 0.125% 473 ML BTL XX SCH (09:00)
[2024-03-06 15:19] VITALS: BP 96/52
--- NOTE | 2024-03-06 16:09 | NUR ---
Spiritual Care Consult - ordered by Dr. Obed HAZEL Pt. is awake in bed and welcomed my visit. Pt. is pleasant. Facilitated a lengthy life review and listened with interest, empathty and a calming presence. Pt. displayed evidence of a clear mind, but also displayed evidence of some lonliness. Rapport is ultimately established as we considered matters of soo and belief. Pt. verbalized graitude for the care she has received as well as the spiritual care visit.
--- NOTE | 2024-03-06 18:02 | NUR ---
NO ACUTE CHANGES, WORKING ON SNF PLACEMENT IN [place], DRSG CHANGE DONE YESTERDAY, PT AND MECHANICAL METER TESTER 2 PERSON MAX TO BS, DRSG WAS NOT SOILED. MEDICATED WITH TYLENOL THIS AM, SBP 90S, VERY PLEASANT TO CARE, CLEARLY MAKES NEEDS KNOWN, ELEVATED EXTREMITIES, IVF LR AT 125ML/HR, SULMA HEEL DRSG IN PLACE NO DRAINAGE. CALL LIGHT WITH IN REACH, WILL RELAY TO PM RN
[2024-03-06 19:48] VITALS: BP 119/49
[2024-03-07] VITALS (16 sets, daily range): BP systolic 99–161; BP diastolic 60–78
--- NOTE | 2024-03-07 04:51 | NUR ---
Pt repositioned frequently through the night. Dressing to back saturated and reinforced x1. Pt tolerated well. Dressings to bilateral heels intact. Poor perfusion noted to extremities. Pt denies c/o pain. Resp even and unlabored. No distress noted.
[2024-03-07 05:12] LABS: BASOPHILS ABSOLUTE AUTO 0.03 K/mm3 (0.00-0.23); BASOPHILS PERCENT AUTO 0 % (0-2); EOSINOPHILS ABSOLUTE AUTO 0.12 K/mm3 (0.00-0.68); EOSINOPHILS PERCENT AUTO 1 % (0-6); Hematocrit 23.8 % (33.0-51.0); Hemoglobin 7.3 g/dL (11.5-16.0); IMMATURE GRAN ABSOLUTE AUTO 0.18 K/mm3 (0.00-0.10); IMMATURE GRAN PERCENT AUTO 2 % (0-1); LYMPHOCYTES ABSOLUTE AUTO 1.07 K/mm3 (0.84-5.20); LYMPHOCYTES PERCENT AUTO 10 % (21-46); MONOCYTES PERCENT AUTO 7 % (4-13); Mean Corpuscular HGB Conc 30.7 g/dL (31.5-36.5); Mean Platelet Volume 9.4 fL (9.1-12.4); NEUTROPHILS ABSOLUTE AUTO 8.55 K/mm3 (1.96-9.15); NEUTROPHILS PERCENT AUTO 80 % (41-73); Platelet Count 267 K/mm3 (150-400); RDW Coefficient Variation 19.1 % (11.7-14.2); RDW Standard Deviation 60.4 fL (35.1-46.3); Red Blood Cell Count 2.52 M/mm3 (3.80-5.20); White Blood Cell Count 10.65 K/mm3 (4.00-11.30)
[2024-03-07 05:36] LABS: Bun/Creatinine Ratio 18.7 (12.0-20.0); Calcium, Blood 7.6 mg/dL (8.5-10.1); Creatinine, Blood 0.96 mg/dL (0.40-1.00); Potassium, Blood 3.9 mmol/L (3.5-5.5)
[2024-03-07 05:41] LABS: Mean Corpuscular Volume 94 fL (80-100)
[2024-03-07] MEDS ORDERED: Lactated Ringer's 1,000 ML IV SCH (13:40)
[2024-03-07] MEDS ORDERED: Sodium Hypochlorite 0.125% 473 ML BTL TOP SCH (13:45)
--- NOTE | 2024-03-07 14:00 | NUR ---
PT HAS A 22G IV IN LFA THAT SHOWS NO SIGNS OF INFILTRATION, FLOWS WELL TO GRAVITY.
[2024-03-07] MEDS ORDERED: Bupivacaine 0.5% HCl 5 MG/ML 30MLVIAL ONE (14:40)
[2024-03-07] MEDS ORDERED: FentaNYL Citrate 50 MCG/ML 2 ML Injection ONE ×2 (15:02→16:58)
[2024-03-07] MEDS ORDERED: Etomidate 2MG / ML 10ML Vial ONE (15:03)
[2024-03-07] MEDS ORDERED: Ondansetron HCl 2 MG / ML 2ML Vial ONE (15:26)
[2024-03-07] MEDS ORDERED: Rocuronium Bromide 10 MG/ML 5ML Injection IV ONE (15:26)
[2024-03-07] MEDS ORDERED: Dexamethasone Sod Phos 10 MG/ML 1ML VIAL ONE (15:26)
--- NOTE | 2024-03-07 15:35 | NUR ---
SHIFT SUMMARY PT AWAKE AT START OF SHIFT, REQUESTING BED RUTH FOR BM DURING SHIFT REPORT. PT REPORTED THAT SHE IS NONWT BEARING TO FEET D/T ULCERS. PT ABLE TO ROLL EASILY TO ASSIST WITH BED RUTH PLACEMENT. WELLER CATH PLACED IN ER D/T INCONTINENCE AND LRG AMOUNT OF SACRAL WOUNDS. DRG'S TO BACK/BUTTOCKS RE-ENFORCED AND DUE TO BE CHANGED TODAY. DR HASSAN CALLED DURING AM SHIFT REPORT TO STATE THAT NPO ORDERS WERE PLACED AND PT WOULD BE GOING TO OR THIS AFTERNOON FOR WOUND CLEANING AND REDRESSING. PT CURRENTLY DOWN IN OR AT THIS TIME. PT RECEIVING IV ABX AND IVF'S PER EMAR. PT IS [place], EVEN WITH HEARING AIDS, BUT VERY PLEASANT AND CO-OP. BL FOOT ULCERS WITH DRSG'S C/D/I. SKIN TO HANDS PEELING. NO C/O PAIN THIS SHIFT. SLIDE TX TO ALEJANDRO.
[2024-03-07] MEDS ORDERED: Phenylephrine HCl 100 MCG/ML-NS 10MLSYR (1MG/10ML) ONE (16:10)
[2024-03-07] MEDS ORDERED: Neostigmine Methylsulfate 5MG/5ML SYR ONE (16:41)
[2024-03-07] MEDS ORDERED: Glycopyrrolate 0.2 MG/ML 5ML VIAL ONE (16:41)
--- NOTE | 2024-03-07 17:53 | NUR ---
1745 RECEIVED PT BACK FROM PACU FOR WOUND DEBRIDEMENT TO BACK/[facility]. VERY MINIMAL BLOOD LOSS. NO NAUSEA. MEDICATED FOR C/O PAIN. 5 PERSON SLIDE TX BACK TO BED. PT RESTING QUIETLY; VSS SEE CHART. PT OFFERED ICE WATER AND DINNER, PER REQUEST, BUT IS STILL WAKING UP. NO C/O PAIN WHEN TRANSFERING PT BACK TO BED OR CURRENTLY. CALL LT IN REACH.
--- NOTE | 2024-03-08 03:43 | NUR ---
Pt alert and oriented. Awake watching tv until 1 am. dessing noted saturated with serosanguinous drainage. Linens changed. Dressings to back reinforced. Pt resting quietly in bed at this time. No distress noted. No c/o pain.
[2024-03-08 05:08] LABS: BASOPHILS ABSOLUTE AUTO 0.02 K/mm3 (0.00-0.23); BASOPHILS PERCENT AUTO 0 % (0-2); EOSINOPHILS PERCENT AUTO 0 % (0-6); Hematocrit 24.3 % (33.0-51.0); Hemoglobin 7.5 g/dL (11.5-16.0); IMMATURE GRAN ABSOLUTE AUTO 0.19 K/mm3 (0.00-0.10); IMMATURE GRAN PERCENT AUTO 2 % (0-1); LYMPHOCYTES PERCENT AUTO 8 % (21-46); MONOCYTES ABSOLUTE AUTO 0.39 K/mm3 (0.16-1.47); MONOCYTES PERCENT AUTO 4 % (4-13); Mean Corpuscular HGB 28.6 pg (26.0-34.0); Mean Corpuscular HGB Conc 30.9 g/dL (31.5-36.5); Mean Corpuscular Volume 93 fL (80-100); Mean Platelet Volume 9.1 fL (9.1-12.4); NEUTROPHILS ABSOLUTE AUTO 9.48 K/mm3 (1.96-9.15); NEUTROPHILS PERCENT AUTO 86 % (41-73); Platelet Count 307 K/mm3 (150-400); RDW Coefficient Variation 19.8 % (11.7-14.2); RDW Standard Deviation 61.6 fL (35.1-46.3); Red Blood Cell Count 2.62 M/mm3 (3.80-5.20); White Blood Cell Count 10.98 K/mm3 (4.00-11.30)
[2024-03-08 05:15] VITALS: BP 133/62
[2024-03-08 05:28] LABS: Albumin, Blood 1.1 g/dL (3.4-5.0); Albumin/Globulin Ratio 0.4 (0.8-1.8); Bilirubin, Total 0.1 mg/dL (0.1-1.0); Bun/Creatinine Ratio 19.8 (12.0-20.0); Calcium, Blood 7.7 mg/dL (8.5-10.1); Creatinine, Blood 0.96 mg/dL (0.40-1.00); Total Protein, Blood 4.1 g/dL (6.4-8.2)
[2024-03-08 07:47] VITALS: BP 104/61
[2024-03-08 14:45] VITALS: BP 80/58
[2024-03-08] MEDS ORDERED: Midodrine 5 MG Tab PO PRN (15:00)
[2024-03-08] MEDS ORDERED: Midodrine 5 MG Tab PO ONE (15:00)
[2024-03-08 16:00] VITALS: BP 100/50
--- NOTE | 2024-03-08 17:04 | NUR ---
SHIFT SUMMARY PT REMAINS A&O X4, PLEASANT AND COOPERATIVE WITH STAFF. PT CONT TO REMAIN BED BOUND ASSIST AND ROTATED Q 2HR. PT CONT TO UTILITZE WELLER WITH YELLOW DRAINAGE NOTED. PT NOTED TO HAVE +3 EDEMA TO BLE AND BUE. PT BP NOTED TO BE SOFT PHYSICIAN NOTIFIED WITH NEW ORDERS RECEIVED FOR MIDODRINE NOW AND PRN TID FOR SBP <90. PT HAD POWERGLIDE PLACED THIS SHIFT TO LEFT UPPER ARM. PT CONT IV ABT AT THIS TIME. DSG CHANGED TO R HEEL AND L BOTTOM FOOT THIS SHIFT. DSG TO SACRAL REMAINS CDI AT THIS TIME. PT DENIES PAIN AT THIS TIME.
[2024-03-08 19:57] VITALS: BP 103/51
[2024-03-09 03:58] VITALS: BP 112/58
[2024-03-09 06:13] LABS: BASOPHILS ABSOLUTE AUTO 0.04 K/mm3 (0.00-0.23); BASOPHILS PERCENT AUTO 0 % (0-2); EOSINOPHILS ABSOLUTE AUTO 0.07 K/mm3 (0.00-0.68); EOSINOPHILS PERCENT AUTO 1 % (0-6); Hematocrit 22.8 % (33.0-51.0); IMMATURE GRAN ABSOLUTE AUTO 0.14 K/mm3 (0.00-0.10); IMMATURE GRAN PERCENT AUTO 1 % (0-1); LYMPHOCYTES ABSOLUTE AUTO 1.06 K/mm3 (0.84-5.20); LYMPHOCYTES PERCENT AUTO 9 % (21-46); MONOCYTES ABSOLUTE AUTO 0.91 K/mm3 (0.16-1.47); MONOCYTES PERCENT AUTO 7 % (4-13); Mean Corpuscular HGB 29.2 pg (26.0-34.0); Mean Corpuscular HGB Conc 30.7 g/dL (31.5-36.5); Mean Corpuscular Volume 95 fL (80-100); Mean Platelet Volume 9.2 fL (9.1-12.4); NEUTROPHILS ABSOLUTE AUTO 10.31 K/mm3 (1.96-9.15); NEUTROPHILS PERCENT AUTO 82 % (41-73); Platelet Count 271 K/mm3 (150-400); RDW Coefficient Variation 20.3 % (11.7-14.2); RDW Standard Deviation 62.8 fL (35.1-46.3); White Blood Cell Count 12.53 K/mm3 (4.00-11.30)
--- NOTE | 2024-03-09 06:16 | NUR ---
SUMMARY: PT A/OX3, IS MENOMINEE AND OCC.FORGETFUL. SHE'S ON BEDREST W/TURN SCHEDULE MAINTAINED FOR DECUB ULCERS TO LOW BACK/BUTTOCKS EXTENDING BETWEEN HIPS. X2 DRAINS ARE INTACT POST DEBRIDEMENT OF WOUNDS AND OUTER DX + MEPILEX TO EXCORIATED COCCYX WERE CHANGED THIS SHIFT D/T SATURATION. PARTIAL BEDBATH AND LINEN CHANGE REQ'D AND WELLER IS PATENT/DRAINING FOR WOUND HEALING. DX'S TO L.HEEL AND R.PLANTAR ULCERS REMAIN C/D/I. BLE'S REMAIN EDEMATOUS AND LEGS ARE ELEVATED ON PILLOWS. SHE DENIES PAIN AND ALL OTHER COMPLAINTS. VSS/AFEBRILE, NO ACUTE CHANGES. WCTM AND REPORT TO DAY RN.
[2024-03-09 06:44] LABS: Albumin/Globulin Ratio 0.3 (0.8-1.8); Bilirubin, Total 0.2 mg/dL (0.1-1.0); Bun/Creatinine Ratio 27.2 (12.0-20.0); Calcium, Blood 7.7 mg/dL (8.5-10.1); Creatinine, Blood 0.88 mg/dL (0.40-1.00); Globulin, Blood 2.9 g/dL (2.2-4.0); Potassium, Blood 3.8 mmol/L (3.5-5.5); Total Protein, Blood 3.9 g/dL (6.4-8.2)
[2024-03-09 07:12] VITALS: BP 109/60
[2024-03-09 10:37] LABS: Hematocrit 24.8 % (33.0-51.0); Hemoglobin 7.5 g/dL (11.5-16.0)
--- NOTE | 2024-03-09 12:00 | NUR ---
WOUND CARE COMPLETED WOUND CARE ON PT THIS SHIFT. REMOVED 7 GAUZE ROLLS FROM PT WOUND AND CLEANDED WITH WOUND CLEANSER. PLACED 3 ROLLS OF DRY GAUZE D/T THE JUSTIN. DR BETANCUR STATED IT WAS OKAY TO PLACE DRY. COVERED WITH ABD PADS AND TAPED TO SECURE.
[2024-03-09 15:11] VITALS: BP 110/70
--- NOTE | 2024-03-09 16:50 | NUR ---
SHIFT SUMMARY PT REMAINS A&O X3, CONT TO REMAIN BED BOUND WITH ASSIST X1. DSG CHANGED TO SACRAL THIS SHIFT REMOVED 7 ROLLS OF GAUZE FROM WOUND. PACKED [address] BETANCUR D/T THE JUSTIN. PT TOLERATED WELL. PT DENIES ANY PAIN THIS SHIFT. HGB NOTED TO BE AT 7 THIS MORING BUT UPON REDRAW IT WAS 7.5 NO NEW ORDERS RECEIVED AT THIS TIME. DSG CHANGE TO L HEEL AND R BOTTOM FOOT ORDERED.
[2024-03-09 20:20] VITALS: BP 113/59
[2024-03-10] VITALS (9 sets, daily range): BP systolic 99–118; BP diastolic 48–62
[2024-03-10 05:24] LABS: BASOPHILS ABSOLUTE AUTO 0.03 K/mm3 (0.00-0.23); BASOPHILS PERCENT AUTO 0 % (0-2); EOSINOPHILS ABSOLUTE AUTO 0.05 K/mm3 (0.00-0.68); EOSINOPHILS PERCENT AUTO 1 % (0-6); Hematocrit 21.4 % (33.0-51.0); Hemoglobin 6.7 g/dL (11.5-16.0); IMMATURE GRAN ABSOLUTE AUTO 0.09 K/mm3 (0.00-0.10); IMMATURE GRAN PERCENT AUTO 1 % (0-1); LYMPHOCYTES ABSOLUTE AUTO 1.02 K/mm3 (0.84-5.20); LYMPHOCYTES PERCENT AUTO 10 % (21-46); MONOCYTES ABSOLUTE AUTO 0.76 K/mm3 (0.16-1.47); MONOCYTES PERCENT AUTO 8 % (4-13); Mean Corpuscular HGB 29.4 pg (26.0-34.0); Mean Corpuscular HGB Conc 31.3 g/dL (31.5-36.5); Mean Corpuscular Volume 94 fL (80-100); Mean Platelet Volume 8.8 fL (9.1-12.4); NEUTROPHILS PERCENT AUTO 81 % (41-73); Platelet Count 270 K/mm3 (150-400); RDW Coefficient Variation 20.6 % (11.7-14.2); RDW Standard Deviation 65.1 fL (35.1-46.3); Red Blood Cell Count 2.28 M/mm3 (3.80-5.20); White Blood Cell Count 10.05 K/mm3 (4.00-11.30)
[2024-03-10 05:50] LABS: Bun/Creatinine Ratio 32.4 (12.0-20.0); Calcium, Blood 7.8 mg/dL (8.5-10.1); Creatinine, Blood 0.8 mg/dL (0.40-1.00); Potassium, Blood 3.8 mmol/L (3.5-5.5)
--- NOTE | 2024-03-10 06:35 | NUR ---
SUMMARY: PT IS A/OX3 AND ALUTIIQ BUT SHE SPECIFIES NEEDS APPROPRIATELY WHEN STAFF ARE IN ROOM. SHE'S ON BEDREST W/TURN SCHEDULE MAINTAINED AND IS ABLE TO ASSIST W/REPOSITIONING. PT HAS HEALING DECUB ULCERS EXTENDING BETWEEN HER HIPS ON HER LOW BACK/UPPER BUTTOCKS. X2 DRAINS ARE INTACT POST DEBRIDEMENT OF THESE WOUNDS AND DX WAS CHANGED ON DAY SHIFT. IT REMAINS C/D/I DO THE MEPILEXES TO HER EXCORIATED COCCYX AND ULCERS ON L.HEEL + R.PLANTAR FOOT. X4 EXT'S REMAIN EDEMATOUS AND ARE ELEVATED ON PILLOWS. SHE CONT'S TO DENY PAIN AND ALL OTHER COMPLAINTS. VSS/AFEBRILE, NO ACUTE CHANGES. WCTM AND REPORT TO DAY RN.
--- NOTE | 2024-03-10 16:02 | NUR ---
PT TRANSFERED TO [facility] VIA WHEEL CHAIR TRANSPORT. NO DISTRESS NOTED PT AO AND COOPERATIVE OF CARE. PT IS A 1-2 PER TRANSFER WITH WALKER. WOUND WAS CHANGED PER ORDER AND DANKIN SOLUTION WAS USED ON GAUZE TO PACK WOUND SEE WOUND ASSESSMENT. PT DID EXPERIENCE SOME PAIN DUE TO THE AMOUNT OF PACKING AND WAS TREATED FOR PAIN PER EMAR. REPORT WAS CALLED TO RECIEVING FACILITY ARIVAL. ALL PERSONAL BELONGINGS WERE SENT WITH PT AND PACKET WAS GIVEN TO ADMINISTRATIVE MANAGER. PT DID WELL GETTING INTO WHEELCHAIR WITH TWO PEOPLE.
== END 2024-03-10 14:19 | DRG 853 ==
LOC: ER 17:02 → MEDS 19:42 → ER 19:57 → MEDS 21:35
PROVIDERS: Emergency Medicine; Family Medicine; Hospitalist; Student in an Organized Health Care Education/Training Program; Surgery; ADMIT Internal Medicine
PROC: 3E03329 Introduction of Other Anti-infective into Peripheral Vein, Percutaneous Approach (ICD-10-PCS; 2024-02-27)
PROC: 0QB10ZZ Excision of Sacrum, Open Approach (ICD-10-PCS; principal; 2024-02-28 10:45)
PROC: 0QB10ZZ Excision of Sacrum, Open Approach (ICD-10-PCS; 2024-03-07)
DX: A41.9 Sepsis, unspecified organism (principal); A48.0 Gas gangrene; L89.154 Pressure ulcer of sacral region, stage 4; E11.52 Type 2 diabetes mellitus with diabetic peripheral angiopathy with gangrene; N17.9 Acute kidney failure, unspecified; M86.671 Other chronic osteomyelitis, right ankle and foot; L97.414 Non-pressure chronic ulcer of right heel and midfoot with necrosis of bone; Z66 Do not resuscitate; E11.42 Type 2 diabetes mellitus with diabetic polyneuropathy; E78.5 Hyperlipidemia, unspecified; E66.9 Obesity, unspecified; I12.9 Hypertensive chronic kidney disease with stage 1 through stage 4 chronic kidney disease, or unspecified chronic kidney disease; E11.621 Type 2 diabetes mellitus with foot ulcer; L97.522 Non-pressure chronic ulcer of other part of left foot with fat layer exposed; D64.9 Anemia, unspecified; E11.69 Type 2 diabetes mellitus with other specified complication; H91.90 Unspecified hearing loss, unspecified ear; E88.09 Other disorders of plasma-protein metabolism, not elsewhere classified; L89.200 Pressure ulcer of unspecified hip, unstageable; E11.622 Type 2 diabetes mellitus with other skin ulcer; Z74.01 Bed confinement status; Z88.0 Allergy status to penicillin; Z88.2 Allergy status to sulfonamides; Z79.84 Long term (current) use of oral hypoglycemic drugs; Z79.899 Other long term (current) drug therapy; Z89.432 Acquired absence of left foot; Z89.412 Acquired absence of left great toe; Z68.35 Body mass index [BMI] 35.0-35.9, adult
CPT/HCPCS: 36415; 36430; 74177; 76830; 76856; 80048; 80053; 80202; 81001; 82728; 82947; 83540; 83550; 83605; 83880; 84100; 85014; 85018; 85025; 85045; 85610; 86850; 86900; 86901; 86923; 87040; 87070; 87075; 87077; 87086; 87147; 87205; 88305; 90471; 90715; 93005; 93010; 96374-59; 96375; 97110; 97112; 97161; 97166; 97530; 97535; 99285-25; A9270; J0692; J0696; J1100; J1650; J1885; J2371; J2405; J2704; J2710; J3010; J3370; J7030; J7040; J7050; J7120; P9016; P9047; Q9967

== ENCOUNTER 2024-04-07 00:50 | Day surgery (SDC) | payer MEDICARE ==
[~2024-04-07 00:50] MED LIST: AMLO10 PO; ATOR10 PO; METF500 PO; METO25ER PO; Zestril30 MG PO
== END 2024-04-08 22:46 | disposition home or self-care (01) ==
LOC: WOUND 00:50
DX: E11.621 Type 2 diabetes mellitus with foot ulcer (principal); L97.515 Non-pressure chronic ulcer of other part of right foot with muscle involvement without evidence of necrosis; L97.422 Non-pressure chronic ulcer of left heel and midfoot with fat layer exposed; L89.214 Pressure ulcer of right hip, stage 4; L89.134 Pressure ulcer of right lower back, stage 4; L89.154 Pressure ulcer of sacral region, stage 4; L89.204 Pressure ulcer of unspecified hip, stage 4

== ENCOUNTER 2024-04-28 03:03 | Day surgery (SDC) | payer MEDICARE | END 2024-04-28 23:23 | disposition home or self-care (01) | LOC: WOUND 03:03 | DX: E11.621 Type 2 diabetes mellitus with foot ulcer (principal); L89.613 Pressure ulcer of right heel, stage 3; L89.891 Pressure ulcer of other site, stage 1; L89.214 Pressure ulcer of right hip, stage 4; L89.134 Pressure ulcer of right lower back, stage 4; L89.154 Pressure ulcer of sacral region, stage 4; E11.622 Type 2 diabetes mellitus with other skin ulcer | CPT/HCPCS: 87070; 87075; 87077; 87147; 87186; 87205 ==

== ENCOUNTER 2024-05-05 03:51 | Day surgery (SDC) | payer MEDICARE | END 2024-05-05 23:00 | LOC: WOUND 03:51 | DX: E11.621 Type 2 diabetes mellitus with foot ulcer (principal); L97.413 Non-pressure chronic ulcer of right heel and midfoot with necrosis of muscle; L97.422 Non-pressure chronic ulcer of left heel and midfoot with fat layer exposed; L89.214 Pressure ulcer of right hip, stage 4; L89.134 Pressure ulcer of right lower back, stage 4 ==

== ENCOUNTER 2024-05-12 04:28 | Day surgery (SDC) | payer MEDICARE | END 2024-05-13 23:09 | disposition home or self-care (01) | LOC: WOUND 04:28 | DX: E11.621 Type 2 diabetes mellitus with foot ulcer (principal); L97.415 Non-pressure chronic ulcer of right heel and midfoot with muscle involvement without evidence of necrosis; L97.522 Non-pressure chronic ulcer of other part of left foot with fat layer exposed; L89.104 Pressure ulcer of unspecified part of back, stage 4; L89.214 Pressure ulcer of right hip, stage 4; L89.134 Pressure ulcer of right lower back, stage 4; L97.515 Non-pressure chronic ulcer of other part of right foot with muscle involvement without evidence of necrosis; L97.422 Non-pressure chronic ulcer of left heel and midfoot with fat layer exposed; L89.154 Pressure ulcer of sacral region, stage 4 ==

== ENCOUNTER 2024-05-19 01:43 | Day surgery (SDC) | payer MEDICARE | END 2024-05-19 23:00 | disposition home or self-care (01) | LOC: WOUND 01:43 | DX: E11.621 Type 2 diabetes mellitus with foot ulcer (principal); L97.415 Non-pressure chronic ulcer of right heel and midfoot with muscle involvement without evidence of necrosis; L97.522 Non-pressure chronic ulcer of other part of left foot with fat layer exposed; L89.134 Pressure ulcer of right lower back, stage 4; L89.214 Pressure ulcer of right hip, stage 4; L89.154 Pressure ulcer of sacral region, stage 4 | CPT/HCPCS: G0463 ==

== ENCOUNTER 2024-05-26 02:26 | Day surgery (SDC) | payer MEDICARE | END 2024-05-26 23:00 | LOC: WOUND 02:26 | DX: E11.621 Type 2 diabetes mellitus with foot ulcer (principal); L97.412 Non-pressure chronic ulcer of right heel and midfoot with fat layer exposed; L97.522 Non-pressure chronic ulcer of other part of left foot with fat layer exposed; L89.214 Pressure ulcer of right hip, stage 4; L89.134 Pressure ulcer of right lower back, stage 4; E11.69 Type 2 diabetes mellitus with other specified complication; M86.9 Osteomyelitis, unspecified | CPT/HCPCS: G0463 ==

== ENCOUNTER 2024-06-02 02:46 | Day surgery (SDC) | payer MEDICARE | END 2024-06-02 23:00 | disposition home or self-care (01) | LOC: WOUND 02:46 | DX: L89.134 Pressure ulcer of right lower back, stage 4 (principal); E11.621 Type 2 diabetes mellitus with foot ulcer; L97.415 Non-pressure chronic ulcer of right heel and midfoot with muscle involvement without evidence of necrosis; L97.522 Non-pressure chronic ulcer of other part of left foot with fat layer exposed; E11.40 Type 2 diabetes mellitus with diabetic neuropathy, unspecified ==

== ENCOUNTER 2024-06-09 02:43 | Day surgery (SDC) | payer MEDICARE | END 2024-06-09 23:48 | disposition home or self-care (01) | LOC: WOUND 02:43 | DX: L89.134 Pressure ulcer of right lower back, stage 4 (principal); E11.621 Type 2 diabetes mellitus with foot ulcer; L97.415 Non-pressure chronic ulcer of right heel and midfoot with muscle involvement without evidence of necrosis; L97.522 Non-pressure chronic ulcer of other part of left foot with fat layer exposed; E11.40 Type 2 diabetes mellitus with diabetic neuropathy, unspecified ==

== ENCOUNTER 2024-06-16 01:58 | Day surgery (SDC) | payer MEDICARE | END 2024-06-17 00:13 | disposition home or self-care (01) | LOC: WOUND 01:58 | DX: L89.134 Pressure ulcer of right lower back, stage 4 (principal); E11.621 Type 2 diabetes mellitus with foot ulcer; L97.415 Non-pressure chronic ulcer of right heel and midfoot with muscle involvement without evidence of necrosis; L97.522 Non-pressure chronic ulcer of other part of left foot with fat layer exposed; E11.40 Type 2 diabetes mellitus with diabetic neuropathy, unspecified; L03.116 Cellulitis of left lower limb ==

== ENCOUNTER 2024-06-18 10:49 | Emergency (ER) | payer MEDICARE ==
[~2024-06-18] VITALS: Ht 165.1 cm; Wt 73.5 kg
[2024-06-18 11:35] LABS: BASOPHILS ABSOLUTE AUTO 0.07 K/mm3 (0.00-0.23); BASOPHILS PERCENT AUTO 0 % (0-2); EOSINOPHILS ABSOLUTE AUTO 0.07 K/mm3 (0.00-0.68); EOSINOPHILS PERCENT AUTO 0 % (0-6); Hematocrit 36.3 % (33.0-51.0); Hemoglobin 11.9 g/dL (11.5-16.0); IMMATURE GRAN ABSOLUTE AUTO 0.29 K/mm3 (0.00-0.10); IMMATURE GRAN PERCENT AUTO 2 % (0-1); LYMPHOCYTES ABSOLUTE AUTO 1.06 K/mm3 (0.84-5.20); LYMPHOCYTES PERCENT AUTO 6 % (21-46); MONOCYTES ABSOLUTE AUTO 1.11 K/mm3 (0.16-1.47); MONOCYTES PERCENT AUTO 7 % (4-13); Mean Corpuscular HGB 31.8 pg (26.0-34.0); Mean Corpuscular HGB Conc 32.8 g/dL (31.5-36.5); Mean Corpuscular Volume 97 fL (80-100); Mean Platelet Volume 9.7 fL (9.1-12.4); NEUTROPHILS PERCENT AUTO 85 % (41-73); Platelet Count 326 K/mm3 (150-400); RDW Coefficient Variation 13.5 % (11.7-14.2); RDW Standard Deviation 48.3 fL (35.1-46.3); Red Blood Cell Count 3.74 M/mm3 (3.80-5.20)
[2024-06-18 12:05] LABS: Albumin, Blood 2.3 g/dL (3.4-5.0); Albumin/Globulin Ratio 0.6 (0.8-1.8); Bilirubin, Total 0.5 mg/dL (0.1-1.0); Bun/Creatinine Ratio 22.4 (12.0-20.0); Calcium, Blood 9.1 mg/dL (8.5-10.1); Creatinine, Blood 0.98 mg/dL (0.40-1.00); Potassium, Blood 3.6 mmol/L (3.5-5.5); Total Protein, Blood 6.3 g/dL (6.4-8.2)
[2024-06-18] MEDS ORDERED: CefTRIAXone Sodium 1,000 MG in NS 100 ML IV ONE (14:35)
[2024-06-18] MEDS ORDERED: DOXY100 PO (14:43)
== END 2024-06-18 14:52 | disposition home or self-care (01) ==
LOC: ER 10:49
PROVIDERS: Physician Assistant
DX: L03.115 Cellulitis of right lower limb (principal); D72.829 Elevated white blood cell count, unspecified; Z86.31 Personal history of diabetic foot ulcer; E11.42 Type 2 diabetes mellitus with diabetic polyneuropathy; Z79.84 Long term (current) use of oral hypoglycemic drugs; Z79.899 Other long term (current) drug therapy; Z88.2 Allergy status to sulfonamides
CPT/HCPCS: 80053; 85025; 96374; 99283-25; J0696

== ENCOUNTER 2024-06-23 03:49 | Day surgery (SDC) | payer MEDICARE ==
[~2024-06-23 03:49] MED LIST changes: +DOXY100 PO
== END 2024-06-23 23:00 | disposition home or self-care (01) ==
LOC: WOUND 03:49
DX: E11.621 Type 2 diabetes mellitus with foot ulcer (principal); L97.413 Non-pressure chronic ulcer of right heel and midfoot with necrosis of muscle; L97.422 Non-pressure chronic ulcer of left heel and midfoot with fat layer exposed; L89.214 Pressure ulcer of right hip, stage 4; L89.134 Pressure ulcer of right lower back, stage 4; E11.622 Type 2 diabetes mellitus with other skin ulcer
CPT/HCPCS: G0463

== ENCOUNTER 2024-07-07 02:33 | Day surgery (SDC) | payer MEDICARE | END 2024-07-07 23:18 | disposition home or self-care (01) | LOC: WOUND 02:33 | DX: E11.621 Type 2 diabetes mellitus with foot ulcer (principal); L97.415 Non-pressure chronic ulcer of right heel and midfoot with muscle involvement without evidence of necrosis; L97.522 Non-pressure chronic ulcer of other part of left foot with fat layer exposed; L89.134 Pressure ulcer of right lower back, stage 4; L02.415 Cutaneous abscess of right lower limb | CPT/HCPCS: G0463 ==

== ENCOUNTER 2024-07-14 00:23 | Day surgery (SDC) | payer MEDICARE ==
[2024-07-14] MEDS ORDERED: Lidocaine HCl 4% Cream 5 GM ONE (09:22)
== END 2024-07-14 23:00 | disposition home or self-care (01) ==
LOC: WOUND 00:23
DX: E11.621 Type 2 diabetes mellitus with foot ulcer (principal); E11.622 Type 2 diabetes mellitus with other skin ulcer; L97.815 Non-pressure chronic ulcer of other part of right lower leg with muscle involvement without evidence of necrosis; L89.214 Pressure ulcer of right hip, stage 4; L89.134 Pressure ulcer of right lower back, stage 4; L97.515 Non-pressure chronic ulcer of other part of right foot with muscle involvement without evidence of necrosis; L97.422 Non-pressure chronic ulcer of left heel and midfoot with fat layer exposed; L89.154 Pressure ulcer of sacral region, stage 4; L89.204 Pressure ulcer of unspecified hip, stage 4
CPT/HCPCS: A9270

== ENCOUNTER 2024-07-21 04:57 | Day surgery (SDC) | payer MEDICARE | END 2024-07-21 23:00 | disposition home or self-care (01) | LOC: WOUND 04:57 | DX: E11.621 Type 2 diabetes mellitus with foot ulcer (principal); L97.415 Non-pressure chronic ulcer of right heel and midfoot with muscle involvement without evidence of necrosis; L97.522 Non-pressure chronic ulcer of other part of left foot with fat layer exposed; L89.134 Pressure ulcer of right lower back, stage 4; L02.415 Cutaneous abscess of right lower limb; E11.40 Type 2 diabetes mellitus with diabetic neuropathy, unspecified | CPT/HCPCS: G0463 ==

== ENCOUNTER 2024-07-28 03:05 | Day surgery (SDC) | payer MEDICARE | END 2024-07-28 23:00 | disposition home or self-care (01) | LOC: WOUND 03:05 | DX: E11.621 Type 2 diabetes mellitus with foot ulcer (principal); L97.412 Non-pressure chronic ulcer of right heel and midfoot with fat layer exposed; L97.522 Non-pressure chronic ulcer of other part of left foot with fat layer exposed; L89.134 Pressure ulcer of right lower back, stage 4; L02.212 Cutaneous abscess of back [any part, except buttock and flank]; E11.622 Type 2 diabetes mellitus with other skin ulcer; L97.815 Non-pressure chronic ulcer of other part of right lower leg with muscle involvement without evidence of necrosis; L89.214 Pressure ulcer of right hip, stage 4; L89.154 Pressure ulcer of sacral region, stage 4; E11.40 Type 2 diabetes mellitus with diabetic neuropathy, unspecified | CPT/HCPCS: A6196 ==

== ENCOUNTER 2024-08-11 03:07 | Day surgery (SDC) | payer MEDICARE | END 2024-08-11 23:00 | disposition home or self-care (01) | LOC: WOUND 03:07 | DX: E11.621 Type 2 diabetes mellitus with foot ulcer (principal); L97.412 Non-pressure chronic ulcer of right heel and midfoot with fat layer exposed; L97.522 Non-pressure chronic ulcer of other part of left foot with fat layer exposed; E11.622 Type 2 diabetes mellitus with other skin ulcer; L97.815 Non-pressure chronic ulcer of other part of right lower leg with muscle involvement without evidence of necrosis; L89.134 Pressure ulcer of right lower back, stage 4; L89.214 Pressure ulcer of right hip, stage 4; L89.154 Pressure ulcer of sacral region, stage 4 | CPT/HCPCS: A6213; G0463 ==

== ENCOUNTER 2024-08-18 03:12 | Day surgery (SDC) | payer MEDICARE | END 2024-08-18 23:00 | disposition home or self-care (01) | LOC: WOUND 03:12 | DX: E11.621 Type 2 diabetes mellitus with foot ulcer (principal); L97.412 Non-pressure chronic ulcer of right heel and midfoot with fat layer exposed; L97.525 Non-pressure chronic ulcer of other part of left foot with muscle involvement without evidence of necrosis; L89.134 Pressure ulcer of right lower back, stage 4; E11.622 Type 2 diabetes mellitus with other skin ulcer; L97.815 Non-pressure chronic ulcer of other part of right lower leg with muscle involvement without evidence of necrosis; E11.40 Type 2 diabetes mellitus with diabetic neuropathy, unspecified | CPT/HCPCS: A6213; G0463 ==

== ENCOUNTER 2024-08-25 04:30 | Day surgery (SDC) | payer MEDICARE ==
[2024-08-25] MEDS ORDERED: Silver Nitr/Potassium Nitrate 1 EA APPL ONE (09:35)
== END 2024-08-25 23:00 | disposition home or self-care (01) ==
LOC: WOUND 04:30
DX: E11.621 Type 2 diabetes mellitus with foot ulcer (principal); L97.412 Non-pressure chronic ulcer of right heel and midfoot with fat layer exposed; L97.425 Non-pressure chronic ulcer of left heel and midfoot with muscle involvement without evidence of necrosis; E11.622 Type 2 diabetes mellitus with other skin ulcer; L97.815 Non-pressure chronic ulcer of other part of right lower leg with muscle involvement without evidence of necrosis; L89.134 Pressure ulcer of right lower back, stage 4; L89.214 Pressure ulcer of right hip, stage 4; L89.154 Pressure ulcer of sacral region, stage 4
CPT/HCPCS: A6213; A9270

== ENCOUNTER 2024-09-01 04:03 | Day surgery (SDC) | payer MEDICARE | END 2024-09-01 23:00 | disposition home or self-care (01) | LOC: WOUND 04:03 | DX: E11.621 Type 2 diabetes mellitus with foot ulcer (principal); L97.525 Non-pressure chronic ulcer of other part of left foot with muscle involvement without evidence of necrosis; L97.412 Non-pressure chronic ulcer of right heel and midfoot with fat layer exposed; B96.5 Pseudomonas (aeruginosa) (mallei) (pseudomallei) as the cause of diseases classified elsewhere; E11.622 Type 2 diabetes mellitus with other skin ulcer; L97.815 Non-pressure chronic ulcer of other part of right lower leg with muscle involvement without evidence of necrosis; E11.40 Type 2 diabetes mellitus with diabetic neuropathy, unspecified | CPT/HCPCS: A6213; G0463 ==

== ENCOUNTER 2024-09-08 06:16 | Day surgery (SDC) | payer MEDICARE | END 2024-09-08 23:00 | disposition home or self-care (01) | LOC: WOUND 06:16 | DX: E11.621 Type 2 diabetes mellitus with foot ulcer (principal); L97.412 Non-pressure chronic ulcer of right heel and midfoot with fat layer exposed; L97.515 Non-pressure chronic ulcer of other part of right foot with muscle involvement without evidence of necrosis; L97.525 Non-pressure chronic ulcer of other part of left foot with muscle involvement without evidence of necrosis; L97.422 Non-pressure chronic ulcer of left heel and midfoot with fat layer exposed; E11.622 Type 2 diabetes mellitus with other skin ulcer; L97.815 Non-pressure chronic ulcer of other part of right lower leg with muscle involvement without evidence of necrosis; E11.42 Type 2 diabetes mellitus with diabetic polyneuropathy | CPT/HCPCS: A6213; G0463 ==

== ENCOUNTER 2024-09-15 06:20 | Day surgery (SDC) | payer MEDICARE | END 2024-09-15 23:00 | disposition home or self-care (01) | LOC: WOUND 06:20 | DX: E11.621 Type 2 diabetes mellitus with foot ulcer (principal); L97.412 Non-pressure chronic ulcer of right heel and midfoot with fat layer exposed; E11.40 Type 2 diabetes mellitus with diabetic neuropathy, unspecified; L97.525 Non-pressure chronic ulcer of other part of left foot with muscle involvement without evidence of necrosis; E11.622 Type 2 diabetes mellitus with other skin ulcer; L97.815 Non-pressure chronic ulcer of other part of right lower leg with muscle involvement without evidence of necrosis; L97.515 Non-pressure chronic ulcer of other part of right foot with muscle involvement without evidence of necrosis | CPT/HCPCS: A6213; G0463 ==

== ENCOUNTER 2024-09-22 01:01 | Day surgery (SDC) | payer MEDICARE | END 2024-09-22 23:00 | disposition home or self-care (01) | LOC: WOUND 01:01 | DX: E11.621 Type 2 diabetes mellitus with foot ulcer (principal); L97.412 Non-pressure chronic ulcer of right heel and midfoot with fat layer exposed; L97.525 Non-pressure chronic ulcer of other part of left foot with muscle involvement without evidence of necrosis; E11.622 Type 2 diabetes mellitus with other skin ulcer; L97.815 Non-pressure chronic ulcer of other part of right lower leg with muscle involvement without evidence of necrosis; E11.40 Type 2 diabetes mellitus with diabetic neuropathy, unspecified | CPT/HCPCS: A6213; G0463 ==

== ENCOUNTER 2024-10-06 00:29 | Day surgery (SDC) | payer MEDICARE | END 2024-10-06 23:00 | disposition home or self-care (01) | LOC: WOUND 00:29 | DX: E11.621 Type 2 diabetes mellitus with foot ulcer (principal); L97.525 Non-pressure chronic ulcer of other part of left foot with muscle involvement without evidence of necrosis; L97.412 Non-pressure chronic ulcer of right heel and midfoot with fat layer exposed; E11.40 Type 2 diabetes mellitus with diabetic neuropathy, unspecified ==

== ENCOUNTER 2024-10-13 01:23 | Day surgery (SDC) | payer MEDICARE | END 2024-10-13 23:00 | disposition home or self-care (01) | LOC: WOUND 01:23 | DX: E11.621 Type 2 diabetes mellitus with foot ulcer (principal); L97.412 Non-pressure chronic ulcer of right heel and midfoot with fat layer exposed; L97.525 Non-pressure chronic ulcer of other part of left foot with muscle involvement without evidence of necrosis; E11.622 Type 2 diabetes mellitus with other skin ulcer | CPT/HCPCS: G0463 ==

== ENCOUNTER 2024-10-20 02:22 | Day surgery (SDC) | payer MEDICARE | END 2024-10-20 23:00 | disposition home or self-care (01) | LOC: WOUND 02:22 | DX: E11.621 Type 2 diabetes mellitus with foot ulcer (principal); L97.412 Non-pressure chronic ulcer of right heel and midfoot with fat layer exposed; L97.525 Non-pressure chronic ulcer of other part of left foot with muscle involvement without evidence of necrosis; E11.622 Type 2 diabetes mellitus with other skin ulcer | CPT/HCPCS: G0463 ==

== ENCOUNTER 2024-10-27 01:43 | Day surgery (SDC) | payer MEDICARE | END 2024-10-27 23:22 | disposition home or self-care (01) | LOC: WOUND 01:43 | DX: E11.621 Type 2 diabetes mellitus with foot ulcer (principal); L97.412 Non-pressure chronic ulcer of right heel and midfoot with fat layer exposed; L97.525 Non-pressure chronic ulcer of other part of left foot with muscle involvement without evidence of necrosis; E11.622 Type 2 diabetes mellitus with other skin ulcer | CPT/HCPCS: G0463 ==

== ENCOUNTER 2024-11-03 02:22 | Day surgery (SDC) | payer MEDICARE | END 2024-11-03 22:56 | disposition home or self-care (01) | LOC: WOUND 02:22 | DX: E11.621 Type 2 diabetes mellitus with foot ulcer (principal); L97.412 Non-pressure chronic ulcer of right heel and midfoot with fat layer exposed; L97.525 Non-pressure chronic ulcer of other part of left foot with muscle involvement without evidence of necrosis; E11.622 Type 2 diabetes mellitus with other skin ulcer ==

== ENCOUNTER 2024-11-10 00:28 | Day surgery (SDC) | payer MEDICARE | END 2024-11-10 23:00 | disposition home or self-care (01) | LOC: WOUND 00:28 | DX: E11.621 Type 2 diabetes mellitus with foot ulcer (principal); L97.412 Non-pressure chronic ulcer of right heel and midfoot with fat layer exposed; L97.525 Non-pressure chronic ulcer of other part of left foot with muscle involvement without evidence of necrosis; E11.40 Type 2 diabetes mellitus with diabetic neuropathy, unspecified; E11.622 Type 2 diabetes mellitus with other skin ulcer | CPT/HCPCS: G0463 ==

== ENCOUNTER 2024-11-17 01:08 | Day surgery (SDC) | payer MEDICARE | END 2024-11-17 23:00 | disposition home or self-care (01) | LOC: WOUND 01:08 | DX: E11.621 Type 2 diabetes mellitus with foot ulcer (principal); L97.412 Non-pressure chronic ulcer of right heel and midfoot with fat layer exposed; L97.525 Non-pressure chronic ulcer of other part of left foot with muscle involvement without evidence of necrosis; E11.622 Type 2 diabetes mellitus with other skin ulcer | CPT/HCPCS: G0463 ==

== ENCOUNTER 2024-11-24 01:38 | Day surgery (SDC) | payer MEDICARE | END 2024-11-24 23:00 | disposition home or self-care (01) | LOC: WOUND 01:38 | DX: E11.621 Type 2 diabetes mellitus with foot ulcer (principal); E11.622 Type 2 diabetes mellitus with other skin ulcer; L97.512 Non-pressure chronic ulcer of other part of right foot with fat layer exposed; L97.422 Non-pressure chronic ulcer of left heel and midfoot with fat layer exposed; E11.40 Type 2 diabetes mellitus with diabetic neuropathy, unspecified | CPT/HCPCS: G0463 ==

== ENCOUNTER → 2024-12-01 | Day surgery (SDC) | payer MEDICARE | LOC: WOUND 12:48 | DX: E11.621 Type 2 diabetes mellitus with foot ulcer (principal); L97.412 Non-pressure chronic ulcer of right heel and midfoot with fat layer exposed; L97.522 Non-pressure chronic ulcer of other part of left foot with fat layer exposed; E11.40 Type 2 diabetes mellitus with diabetic neuropathy, unspecified; E11.622 Type 2 diabetes mellitus with other skin ulcer ==

== ENCOUNTER 2024-12-08 08:19 | Day surgery (SDC) | payer MEDICARE ==
[2024-12-08] MEDS ORDERED: Lidocaine HCl 4% Cream 5 GM ONE (09:21)
[2024-12-08] MEDS ORDERED: Silver Nitr/Potassium Nitrate 1 EA APPL ONE (09:52)
== END 2024-12-08 23:00 | disposition home or self-care (01) ==
LOC: WOUND 08:19
DX: E11.621 Type 2 diabetes mellitus with foot ulcer (principal); L97.522 Non-pressure chronic ulcer of other part of left foot with fat layer exposed; L97.412 Non-pressure chronic ulcer of right heel and midfoot with fat layer exposed; E11.622 Type 2 diabetes mellitus with other skin ulcer; E11.40 Type 2 diabetes mellitus with diabetic neuropathy, unspecified
CPT/HCPCS: A9270

== ENCOUNTER 2024-12-15 05:49 | Day surgery (SDC) | payer MEDICARE | END 2024-12-15 23:00 | disposition home or self-care (01) | LOC: WOUND 05:49 | DX: E11.621 Type 2 diabetes mellitus with foot ulcer (principal); L97.412 Non-pressure chronic ulcer of right heel and midfoot with fat layer exposed; E11.40 Type 2 diabetes mellitus with diabetic neuropathy, unspecified; Z79.84 Long term (current) use of oral hypoglycemic drugs; Z79.899 Other long term (current) drug therapy | CPT/HCPCS: G0463 ==

== ENCOUNTER 2024-12-22 03:31 | Day surgery (SDC) | payer MEDICARE | END 2024-12-22 23:19 | disposition home or self-care (01) | LOC: WOUND 03:31 | DX: E11.621 Type 2 diabetes mellitus with foot ulcer (principal); L97.412 Non-pressure chronic ulcer of right heel and midfoot with fat layer exposed; E11.40 Type 2 diabetes mellitus with diabetic neuropathy, unspecified | CPT/HCPCS: A6196; G0463 ==

== ENCOUNTER 2024-12-29 01:38 | Day surgery (SDC) | payer MEDICARE | END 2024-12-29 23:27 | disposition home or self-care (01) | LOC: WOUND 01:38 | DX: E11.621 Type 2 diabetes mellitus with foot ulcer (principal); L97.422 Non-pressure chronic ulcer of left heel and midfoot with fat layer exposed; E11.622 Type 2 diabetes mellitus with other skin ulcer; L97.515 Non-pressure chronic ulcer of other part of right foot with muscle involvement without evidence of necrosis | CPT/HCPCS: A6196; G0463 ==

== ENCOUNTER 2025-01-19 03:19 | Day surgery (SDC) | payer MEDICARE | END 2025-01-19 23:50 | disposition home or self-care (01) | LOC: WOUND 03:19 | DX: E11.621 Type 2 diabetes mellitus with foot ulcer (principal); L97.422 Non-pressure chronic ulcer of left heel and midfoot with fat layer exposed; L97.412 Non-pressure chronic ulcer of right heel and midfoot with fat layer exposed; E11.622 Type 2 diabetes mellitus with other skin ulcer; E11.40 Type 2 diabetes mellitus with diabetic neuropathy, unspecified | CPT/HCPCS: G0463 ==

== ENCOUNTER 2025-02-09 08:00 | Day surgery (SDC) | payer MEDICARE | END 2025-02-09 23:00 | disposition home or self-care (01) | LOC: WOUND 08:00 | DX: E11.621 Type 2 diabetes mellitus with foot ulcer (principal); L97.512 Non-pressure chronic ulcer of other part of right foot with fat layer exposed; E11.40 Type 2 diabetes mellitus with diabetic neuropathy, unspecified | CPT/HCPCS: G0463 ==

== ENCOUNTER 2025-02-16 04:18 | Day surgery (SDC) | payer MEDICARE | END 2025-02-16 23:00 | disposition home or self-care (01) | LOC: WOUND 04:18 | DX: E11.621 Type 2 diabetes mellitus with foot ulcer (principal); L97.412 Non-pressure chronic ulcer of right heel and midfoot with fat layer exposed | CPT/HCPCS: G0463 ==

== ENCOUNTER 2025-03-02 00:56 | Day surgery (SDC) | payer MEDICARE | END 2025-03-02 23:00 | disposition home or self-care (01) | LOC: WOUND 00:56 | DX: E11.621 Type 2 diabetes mellitus with foot ulcer (principal); E11.622 Type 2 diabetes mellitus with other skin ulcer; L97.515 Non-pressure chronic ulcer of other part of right foot with muscle involvement without evidence of necrosis; L97.422 Non-pressure chronic ulcer of left heel and midfoot with fat layer exposed ==

== ENCOUNTER 2025-03-09 00:32 | Day surgery (SDC) | payer MEDICARE | END 2025-03-09 23:00 | disposition home or self-care (01) | LOC: WOUND 00:32 | DX: E11.621 Type 2 diabetes mellitus with foot ulcer (principal); L97.412 Non-pressure chronic ulcer of right heel and midfoot with fat layer exposed | CPT/HCPCS: G0463 ==

== ENCOUNTER 2025-03-16 00:47 | Day surgery (SDC) | payer MEDICARE | END 2025-03-16 23:00 | disposition home or self-care (01) | LOC: WOUND 00:47 | DX: E11.621 Type 2 diabetes mellitus with foot ulcer (principal); L97.412 Non-pressure chronic ulcer of right heel and midfoot with fat layer exposed | CPT/HCPCS: G0463 ==

== ENCOUNTER 2025-03-23 00:33 | Day surgery (SDC) | payer MEDICARE | END 2025-03-23 23:00 | disposition home or self-care (01) | LOC: WOUND 00:33 | DX: E11.621 Type 2 diabetes mellitus with foot ulcer (principal); L97.422 Non-pressure chronic ulcer of left heel and midfoot with fat layer exposed; E11.622 Type 2 diabetes mellitus with other skin ulcer; L97.515 Non-pressure chronic ulcer of other part of right foot with muscle involvement without evidence of necrosis; E11.40 Type 2 diabetes mellitus with diabetic neuropathy, unspecified | CPT/HCPCS: A6196; G0463 ==

== ENCOUNTER 2025-04-06 00:24 | Day surgery (SDC) | payer MEDICARE | END 2025-04-06 23:31 | disposition home or self-care (01) | LOC: WOUND 00:24 | DX: E11.621 Type 2 diabetes mellitus with foot ulcer (principal); L97.412 Non-pressure chronic ulcer of right heel and midfoot with fat layer exposed; L97.521 Non-pressure chronic ulcer of other part of left foot limited to breakdown of skin; E11.40 Type 2 diabetes mellitus with diabetic neuropathy, unspecified | CPT/HCPCS: A6196; G0463 ==

== ENCOUNTER 2025-04-20 01:08 | Day surgery (SDC) | payer MEDICARE | END 2025-04-20 23:00 | disposition home or self-care (01) | LOC: WOUND 01:08 | DX: E11.621 Type 2 diabetes mellitus with foot ulcer (principal); L97.412 Non-pressure chronic ulcer of right heel and midfoot with fat layer exposed; E11.40 Type 2 diabetes mellitus with diabetic neuropathy, unspecified | CPT/HCPCS: A6196; G0463 ==

== ENCOUNTER 2025-04-27 02:47 | Day surgery (SDC) | payer MEDICARE | END 2025-04-27 23:00 | disposition home or self-care (01) | LOC: WOUND 02:47 | DX: E11.621 Type 2 diabetes mellitus with foot ulcer (principal); L97.412 Non-pressure chronic ulcer of right heel and midfoot with fat layer exposed; L97.522 Non-pressure chronic ulcer of other part of left foot with fat layer exposed; E11.40 Type 2 diabetes mellitus with diabetic neuropathy, unspecified | CPT/HCPCS: A6196; G0463 ==

== ENCOUNTER 2025-05-04 00:57 | Day surgery (SDC) | payer MEDICARE | END 2025-05-04 22:00 | disposition home or self-care (01) | LOC: WOUND 00:57 | DX: E11.621 Type 2 diabetes mellitus with foot ulcer (principal); L97.412 Non-pressure chronic ulcer of right heel and midfoot with fat layer exposed; L97.522 Non-pressure chronic ulcer of other part of left foot with fat layer exposed; E11.40 Type 2 diabetes mellitus with diabetic neuropathy, unspecified; E11.622 Type 2 diabetes mellitus with other skin ulcer; L97.515 Non-pressure chronic ulcer of other part of right foot with muscle involvement without evidence of necrosis; L97.422 Non-pressure chronic ulcer of left heel and midfoot with fat layer exposed; I89.1 Lymphangitis | CPT/HCPCS: 73590; A6196 ==

== ENCOUNTER 2025-05-11 01:31 | Day surgery (SDC) | payer MEDICARE | END 2025-05-11 23:00 | disposition home or self-care (01) | LOC: WOUND 01:31 | DX: E11.621 Type 2 diabetes mellitus with foot ulcer (principal); L97.412 Non-pressure chronic ulcer of right heel and midfoot with fat layer exposed; L97.422 Non-pressure chronic ulcer of left heel and midfoot with fat layer exposed; E11.622 Type 2 diabetes mellitus with other skin ulcer | CPT/HCPCS: A6196; G0463 ==

== ENCOUNTER 2025-06-01 04:00 | Day surgery (SDC) | payer MEDICARE | END 2025-06-01 23:22 | disposition home or self-care (01) | LOC: WOUND 04:00 | DX: E11.621 Type 2 diabetes mellitus with foot ulcer (principal); E11.622 Type 2 diabetes mellitus with other skin ulcer; L97.515 Non-pressure chronic ulcer of other part of right foot with muscle involvement without evidence of necrosis; L97.422 Non-pressure chronic ulcer of left heel and midfoot with fat layer exposed; Z79.84 Long term (current) use of oral hypoglycemic drugs; Z79.899 Other long term (current) drug therapy | CPT/HCPCS: A6196; G0463 ==

== ENCOUNTER 2025-06-08 01:00 | Day surgery (SDC) | payer MEDICARE | END 2025-06-08 23:00 | disposition home or self-care (01) | LOC: WOUND 01:00 | DX: E11.621 Type 2 diabetes mellitus with foot ulcer (principal); L97.412 Non-pressure chronic ulcer of right heel and midfoot with fat layer exposed; E11.40 Type 2 diabetes mellitus with diabetic neuropathy, unspecified | CPT/HCPCS: A6196; G0463 ==

== ENCOUNTER 2025-06-15 00:29 | Day surgery (SDC) | payer MEDICARE | END 2025-06-15 23:00 | disposition home or self-care (01) | LOC: WOUND 00:29 | DX: E11.621 Type 2 diabetes mellitus with foot ulcer (principal); L97.412 Non-pressure chronic ulcer of right heel and midfoot with fat layer exposed; E11.40 Type 2 diabetes mellitus with diabetic neuropathy, unspecified | CPT/HCPCS: A6196; G0463 ==

== ENCOUNTER 2025-06-22 00:20 | Day surgery (SDC) | payer MEDICARE | END 2025-06-22 23:13 | disposition home or self-care (01) | LOC: WOUND 00:20 | DX: E11.621 Type 2 diabetes mellitus with foot ulcer (principal); L97.412 Non-pressure chronic ulcer of right heel and midfoot with fat layer exposed; L97.522 Non-pressure chronic ulcer of other part of left foot with fat layer exposed; E11.40 Type 2 diabetes mellitus with diabetic neuropathy, unspecified | CPT/HCPCS: A6196; Q4151 ==

== ENCOUNTER 2025-06-29 00:46 | Day surgery (SDC) | payer MEDICARE | END 2025-06-29 22:00 | disposition home or self-care (01) | LOC: WOUND 00:46 | DX: E11.621 Type 2 diabetes mellitus with foot ulcer (principal); L97.415 Non-pressure chronic ulcer of right heel and midfoot with muscle involvement without evidence of necrosis; L97.521 Non-pressure chronic ulcer of other part of left foot limited to breakdown of skin; E11.40 Type 2 diabetes mellitus with diabetic neuropathy, unspecified ==

== ENCOUNTER 2025-07-06 00:31 | Day surgery (SDC) | payer MEDICARE | END 2025-07-06 23:00 | disposition home or self-care (01) | LOC: WOUND 00:31 | DX: E11.621 Type 2 diabetes mellitus with foot ulcer (principal); L97.412 Non-pressure chronic ulcer of right heel and midfoot with fat layer exposed; E11.40 Type 2 diabetes mellitus with diabetic neuropathy, unspecified | CPT/HCPCS: A6196; A9270; Q4151 ==

== ENCOUNTER 2025-07-13 07:13 | Day surgery (SDC) | payer MEDICARE | END 2025-07-13 23:32 | disposition home or self-care (01) | LOC: WOUND 07:13 | DX: E11.621 Type 2 diabetes mellitus with foot ulcer (principal); L97.412 Non-pressure chronic ulcer of right heel and midfoot with fat layer exposed; E11.40 Type 2 diabetes mellitus with diabetic neuropathy, unspecified | CPT/HCPCS: A6196; G0463 ==

== ENCOUNTER 2025-07-20 02:35 | Day surgery (SDC) | payer MEDICARE | END 2025-07-20 23:00 | disposition home or self-care (01) | LOC: WOUND 02:35 | DX: E11.621 Type 2 diabetes mellitus with foot ulcer (principal); L97.415 Non-pressure chronic ulcer of right heel and midfoot with muscle involvement without evidence of necrosis; E11.40 Type 2 diabetes mellitus with diabetic neuropathy, unspecified | CPT/HCPCS: G0463 ==

== ENCOUNTER 2025-07-27 00:12 | Day surgery (SDC) | payer MEDICARE | END 2025-07-27 23:00 | disposition home or self-care (01) | LOC: WOUND 00:12 | DX: E11.621 Type 2 diabetes mellitus with foot ulcer (principal); L97.415 Non-pressure chronic ulcer of right heel and midfoot with muscle involvement without evidence of necrosis; E11.40 Type 2 diabetes mellitus with diabetic neuropathy, unspecified ==

== ENCOUNTER → 2025-08-10 | Day surgery (SDC) | payer MEDICARE | LOC: WOUND 11:31 | DX: E11.621 Type 2 diabetes mellitus with foot ulcer (principal); L97.415 Non-pressure chronic ulcer of right heel and midfoot with muscle involvement without evidence of necrosis; E11.40 Type 2 diabetes mellitus with diabetic neuropathy, unspecified | CPT/HCPCS: G0463 ==